=== PATIENT | female | born 1955 | race Caucasian/White ===

== ENCOUNTER 2019-08-14 23:48 | Inpatient (IN) ==
[2019-08-14] MEDS ORDERED: NITROGLYCERIN SL 0.4 MG/TAB TAB ONE (23:54)
[2019-08-15] MEDS ORDERED: ONDANSETRON INJ 2 MG/ML 2 ML VIAL IV STA (00:01)
[2019-08-15] MEDS ORDERED: fentaNYL citrate 100 MCG/2 ML VIAL IV STA (00:01)
[2019-08-15 00:03] LABS: Basophils # (auto) 0.03 K/uL (0-0.2); Basophils % (auto) 0.3 %; Eosinophils # (auto) 0.05 K/uL (0-0.5); Eosinophils % (auto) 0.5 %; Hematocrit (blood only) 49.6 % (37-47); Hemoglobin 17.2 g/dL (12.0-16.0); Immature Granulocytes # (auto) 0.03 K/uL (0.00-0.02); Immature Granulocytes % (auto) 0.3 %; Lymphocytes # (auto) 1.76 K/uL (1.2-3.4); Lymphocytes % (auto) 16.1 %; Mean Corpuscular Hemoglobin 31.9 pg (25-34); Mean Corpuscular Hgb Conc 34.7 g/dL (32-36); Mean Platelet Volume 10.6 fL (7.4-10.4); Monocytes # (auto) 0.52 K/uL (0.11-0.59); Monocytes % (auto) 4.8 %; Neutrophils # (auto) 8.52 K/uL (1.4-6.5); Platelet Count 235 K/uL (130-400); RDW Coefficient of Variation 12.8 % (11.5-14.5); RDW Standard Deviation 42.5 fL (36.4-46.3); Red Blood Count 5.39 M/uL (4.2-5.4); White Blood Count 10.91 K/uL (4.8-10.8)
[2019-08-15] MEDS ORDERED: SODIUM CHLORIDE 0.9% 1000ML 250 ML IV ONE (00:05)
[2019-08-15] MEDS ORDERED: MIDAZOLAM HCL 1 MG/ML 2ML VIAL ONE (00:06)
[2019-08-15] MEDS ORDERED: NiCARDipine HCL INJ 2.5 MG/ML 10 ML AMP ONE (00:06)
[2019-08-15] MEDS ORDERED: fentaNYL citrate 100 MCG/2 ML VIAL ONE (00:06)
[2019-08-15] MEDS ORDERED: HEPARIN (PORCINE) 1000 UNIT/ML 10 ML (CATH LAB USE ONLY) ONE (00:06)
[2019-08-15] MEDS ORDERED: NITROGLYCERIN/D5W 100MCG/ML 20ML SYR ONE (00:07)
[2019-08-15 00:15] LABS: Partial Thromboplastin Time 26.6 Seconds (21.0-31.0); Prothrombin Time 10.3 Seconds (9.0-12.0)
[2019-08-15] MEDS ORDERED: HEPARIN SOD 5,000 UNIT/0.5 ML VIAL ONE (00:16)
[2019-08-15] MEDS ORDERED: TICAGRELOR 90 MG TAB PO ONE (00:16)
--- NOTE | 2019-08-15 00:20 | Cardiology Consultation ---
Date of Consultation August 15, 2019 Assessment & Plan (1) Acute OH: Presentation consistent with inferior STEMI and recommend proceeding with emergent cardiac catheterization and likely primary PCI. No apparent contraindications to procedure. Discussed risks, benefits, alternatives of procedure with patient and they are willing to proceed. Given IV heparin and ticagrelor 180 mg in the ED. Further recommendations pending findings of coronary angiography. History of Present Illness History of Present Illness 64-year-old woman here with acute chest pain and ECG concerning for acute OH. Patient seen emergently in the ED after heart alert activated upon arrival. No prior significant cardiac history. Per patient had episode of chest pain 1-2 yrs ago for which underwent a stress test which reportedly normal. Symptoms attributed to GERD. No longer on meds for reflux. Cardiac risk factors include ongoing tobacco abuse, dyslipidemia, obesity. Other medical issues include hypothyroidism, anxiety. Chest pain began day prior to presentation and has been waxing/waning since that time. Tonight around 10pm, ~ 1 hr before ambulance arrival, pain significantly worsened without relenting. Denies similar symptoms in the past. Given a total of 3 SLNTG with reduction in CP from 9/10 --> 2/10. Hypertensive to 200s on arrival. Underwent serial ECGs with ECG at 11:45 showing sinus rhythm with inferior ST elevations. Allergies Allergy/AdvReac Type Severity Reaction Status Date / Time cephalexin Allergy Unknown face Unverified 08/15/19 00:02 swelling erythromycin base Allergy Unknown nausea, Unverified 08/15/19 00:02 vomitting Sulfa (Sulfonamide Allergy Unknown face Unverified 08/15/19 00:02 Antibiotics) swelling Home Medications Home Medications Medication Instructions Recorded Confirmed Type levothyroxine 112 mcg PO DAILY 08/15/19 08/15/19 History paroxetine HCl 40 mg PO DAILY 08/15/19 08/15/19 History Patient History Medical History (Updated 08/15/19 @ 00:47 by Oneyda Love) Depression (Chronic) Dermatitis (Chronic) DJD (degenerative joint disease), cervical (Chronic) HLD (hyperlipidemia) (Chronic) Hypothyroidism (Chronic) Tobacco use disorder (Chronic) Social History Feels Safe at Home: Yes Smoking Status: Current every day smoker Review of Systems Review of Systems: All systems reviewed & are unremarkable except as noted in HPI & below Physical Exam Physical Exam: General: uncomfortable, no acute distress Eyes: Sclerae anicteric HENT: Oropharynx clear mucous membranes moist, poor dentition Lungs: Clear to auscultation bilaterally Cardiac: Regular rate and rhythm, no murmurs Abdomen: Soft, nontender, nondistended, positive bowel sounds. Neuro: Nonfocal Psych: Alert orient x3, normal affect and mood Extremities/Vascular: -- 2+ radial bilaterally -- No edema Results & Data ([facility]) Vital Signs (Past 12 Hours) Vital Signs Temp Pulse Resp BP Pulse Ox 08/14/19 23:58 95 08/14/19 23:54 98.6 F 77 20 153/97 H 95 PG Care Time/CCT Total # of Minutes Spent Total Time Spent with Patient: Total time spent is greater than 50% in coordination of care (as documented) at patient's floor/unit and/or counseling patient: Coding Level of Care Code 26340 Inpt Consult Level 5 Diagnoses Acute OH I21.9
[2019-08-15 00:24] LABS: Albumin Level 3.9 gm/dl (3.4-5.0); BUN Creatinine Ratio 12.2 (10-20); Calcium 9.3 mg/dl (8.5-10.1); Creatinine Clr Calc Pharmacy 76.4 ml/min; Est GFR (African American) 91.7; Est GFR (Non-African American) 79.1; Potassium 3.8 mmol/L (3.5-5.1)
--- NOTE | 2019-08-15 00:27 | Pre Anesthesia Assessment ---
Date of Service August 15, 2019 Pre Sedation Assessment Vital Signs Temp Pulse Resp BP Pulse Ox 08/15/19 00:20 78 18 165/103 H 96 08/14/19 23:58 95 08/14/19 23:54 98.6 F 77 20 153/97 H 95 Cardiovascular RRR, no murmur, no edema Respiratory normal respiratory effort, lungs clear to auscultation Pre-Sedation Airway Assessment Smoking Status: Current every day smoker Hx Sleep Apnea: No Hx Difficult Intubation: No Thyromental Distance: > or= 3.5 Finger Breadths Oral Cavity: + WNL Mallampati Class: III ASA: ASA4 Procedure Planning Contraindications for Sedation: none Current Medications Reviewed: Yes Notes The planned sedation has been discussed with the patient. Informed Consent was obtained. I have identified the patient, determined the appropriateness of sedation and have assessed the patient immediately prior to the procedure. All medicine(s) and interventions are by my order.
[2019-08-15] MEDS ORDERED: ATROPINE SULFATE 0.1 MG/ML 10ML SYR IV ONE (00:45)
[2019-08-15 00:52] LABS: Bilirubin,Total 1.1 mg/dl (0.2-1); Creatine Kinase MB 15.4 ng/ml (0.5-3.6); Globulin 4.1 gm/dl (2.5-4.0); Thyroid Stimulating Hormone 0.167 uIu/ml (0.300-4.500); Troponin I 1.4 ng/ml (0-0.045)
[2019-08-15 01:07] LABS: T4 Free Thyroxine 1.26 ng/dl (0.8-1.6)
--- NOTE | 2019-08-15 01:10 | Emergency Department Note ---
Entered by Oneyda Love acting as a scribe for History of Present Illness General Chief complaint: Chest Pain Stated complaint: CHEST PAIN History of Present Illness Provider complaint: chest pain Onset (ago): day(s) 1 Location: chest Radiation: back, extremity (left upper) and other (jaw) Pain Consistency: + other (episode) Maximum Pain Intensity: 4 Current Pain Intensity: 5 Quality: + other (pressure) Relieved By: + medication (aspirin and nitroglycerin) Associated symptoms: + diaphoresis and + other (pain intermittent for 1 day, but became constant 1.5 hours ago, difficulty breathing, nauseas) Treatments prior to arrival: NSAID (324 mg aspirin) and other (2 doses of nitroglycerin ) The patient is a 64 year old female who presents to the ED with complaints of an episode of chest pain that started 1 day ago. The patient states that her pain started off as intermittent, but became constant 1.5 hours ago. The patient describes the pain as pressure and radiating into her jaw, back and left arm. Per EMS, the patient was given 2 doses of nitroglycerin and 324 mg of aspirin en route. The patient states that this brought her pain down from an 8/10 to a 5/10. The patient states that when the pain became constant 1.5 hours ago, she was diaphoretic, nauseas and was having difficulty breathing. Per EMS, the patient had a stress test last year and her blood pressure is usually in the 110s. The patient notes that she smoked approximately 1 pack of cigarettes every day. Home Medications Home Medications Medication Instructions Recorded Confirmed Type levothyroxine 112 mcg PO DAILY 08/15/19 08/15/19 History paroxetine HCl 40 mg PO DAILY 08/15/19 08/15/19 History Allergies Allergy/AdvReac Type Severity Reaction Status Date / Time cephalexin Allergy Unknown face Unverified 08/15/19 00:02 swelling erythromycin base Allergy Unknown nausea, Unverified 08/15/19 00:02 vomitting Sulfa (Sulfonamide Allergy Unknown face Unverified 08/15/19 00:02 Antibiotics) swelling Past Med/Surg History Medical History Depression (Chronic) Dermatitis (Chronic) DJD (degenerative joint disease), cervical (Chronic) HLD (hyperlipidemia) (Chronic) Hypothyroidism (Chronic) Tobacco use disorder (Chronic) Social History Feels Safe at Home: Yes Smoking Status: Current every day smoker Review of Systems See HPI for pertinent positives & negatives. and A total of 10 systems reviewed and were otherwise negative Physical Exam Vital Signs Vital Signs - 24 hr 08/14/19 23:54 08/14/19 23:58 08/15/19 00:20 Temperature 37 C Temperature Source Oral Pulse Rate 77 78 Respiratory Rate 20 18 Respiratory Effort / Characteristics Non-Labored Spontaneous Respiratory Depth Normal Blood Pressure 153/97 H 165/103 H Blood Pressure Mean 115 Pulse Oximetry 95 95 96 Oxygen Delivery Method Room Air Room Air Room Air Sepsis Recent Fever Within 48 Hours No Sepsis Action Taken by Nursing No Action Required Constitutional: Vital signs reviewed. Eyes: Pupils are equal round reactive to light. Conjunctiva are noninjected. ENT: Pharynx is clear without erythema or exudate. Mucous membranes are moist. Neck supple without meningeal signs. Respiratory: Clear to auscultation bilaterally. Breath sounds are equal bilatera lly. Cardiovascular: Regular rate and rhythm. No rubs or gallops. GI: Soft, nondistended and nontender. Bowel sounds are present. Musculoskeletal: No peripheral edema. No lower extremity tenderness. Integumentary: No cyanosis. Neurological: The patient is awake and alert. No focal deficits. Psychiatric: Normal affect. Course Course 2339: Medical command call was taken. I called a heart alert. Patient was reported to be hypertensive and has chest pain so I recommended sublingual Nitroglycerin. Aspirin has already been given to the patient by EMS. 2348: Past medical records reviewed. The patient was evaluated in room B01. A complete history and physical exam was performed. 2356: The patient rates her pain as a 4/10 after another dose of nitroglycerin. I discussed catheterization with the patient briefly. We are waiting for Dr. Smith- Cardiology. 2327: I also discussed the patient's case with Dr. Ivana Do, Hospitalist. He will evaluate the patient for further management after the cardiac catheterization. 0005: I reassessed the patient. Her hemoglobin and blood pressure are both elevated. She is getting fentanyl now. Dr. Smith is at bedside. 0014: The patient rates her chest pain as 2/10. She is waiting to go the cemetery laborer with Dr. Smith- Cardiology. She is getting a heparin bolus and brilinta. 0021: The patient is being taken to the cemetery laborer now. Consultations Consultation #1: I also discussed the patient's case with Dr. Ivana Do, Hospitalist. He will evaluate the patient for further management after the cardiac catheterization. Time: 23:27 Administered Medications Discontinued Medications Atropine Sulfate (Atropine Sulfate) Confirm Administered Dose 1 mg IV .STK-MED ONE Stop: 08/15/19 00:46 Last Admin: 08/15/19 01:03 Dose: Not Given Documented by: [id number] Fentanyl Citrate (Fentanyl Citrate) 50 mcg IV NOW STA Stop: 08/15/19 00:02 Last Admin: 08/15/19 00:06 Dose: 50 mcg Documented by: [id number] Fentanyl Citrate (Fentanyl Citrate) Confirm Administered Dose 100 mcg .ROUTE .STK-MED ONE Stop: 08/15/19 00:07 Last Admin: 08/15/19 01:04 Dose: 50 mcg Documented by: [id number] Heparin Sodium (Porcine) (Heparin Iv Bolus (Cor[employer]egal Use Only)) Confirm Administered Dose 10,000 units .ROUTE .STK-MED ONE Stop: 08/15/19 00:07 Last Admin: 08/15/19 01:04 Dose: 5,000 units Documented by: [id number] Heparin Sodium (Porcine) (Heparin Sodium (Porcine)) Confirm Administered Dose 5,000 units .ROUTE .STK-MED ONE Stop: 08/15/19 00:17 Last Admin: 08/15/19 00:18 Dose: 5,000 units Documented by: [id number] Cosigned by: [id number] Heparin Sodium/Sodium Chloride (Heparin/Nss 1000 Unit/500ml Flush Bag) Confirm Administered Dose 3,000 units IV .STK-MED ONE Stop: 08/15/19 00:07 Last Admin: 08/15/19 00:58 Dose: 3,000 units Documented by: [id number] Sodium Chloride (Nss 1000ml) 250 mls @ 999 mls/hr IV .Q16M ONE Stop: 08/15/19 00:20 Last Admin: 08/15/19 00:06 Dose: 999 mls/hr Documented by: [id number] Midazolam HCl (Versed) Confirm Administered Dose 2 mg .ROUTE .STK-MED ONE Stop: 02/27/20 00:07 Last Admin: 08/15/19 01:03 Dose: 2 mg Documented by: [id number] Nicardipine HCl (Cardene) Confirm Administered Dose 25 mg .ROUTE .STK-MED ONE Stop: 08/15/19 00:07 Last Admin: 08/15/19 00:58 Dose: 25 mg Documented by: [id number] Nitroglycerin (Nitrostat) Confirm Administered Dose 0.4 mg .ROUTE .STK-MED ONE Stop: 08/14/19 23:55 Last Admin: 08/14/19 23:55 Dose: 0.4 mg Documented by: [id number] Nitroglycerin/Dextrose (Nitroglycerin/D5w 100 Mcg/Ml 20ml Syringe) Confirm Administered Dose 2,000 mcg .ROUTE .STK-MED ONE Stop: 08/15/19 00:08 Last Admin: 08/15/19 00:58 Dose: 2,000 mcg Documented by: [id number] Ondansetron HCl (Zofran) 4 mg IV NOW STA Stop: 08/15/19 00:02 Last Admin: 08/15/19 00:06 Dose: 4 mg Documented by: [id number] Ticagrelor (Brilinta) Confirm Administered Dose 180 mg PO .STK-MED ONE Stop: 08/15/19 00:17 Last Admin: 08/15/19 00:18 Dose: 180 mg Documented by: [id number] Critical Care Time Critical Care Time: Yes Total Critical Care Time: 35 I have personally spent 35 minutes of critical care time in the direct management of this patient. This includes bedside care, interpretation of diagnostic studies, and testing, discussion with consultants, patient, and family members, and other required patient management activities. This 35 minutes is in excess of all separately billable procedures. Medical Decision Making Differential Diagnosis Differentials include STEMI, right ventricular infarct, aortic dissection, pneumothorax, esophageal spasm. Medical Records Attestation: I reviewed the patient's medical records. I did perform a limited focused review of portions of the patient's old chart on the electronic medical record. The patient has had no recent pertinent visits to this hospital. Home Medications Current Medication List: was personally reviewed by me Laboratory Data Attestation: I reviewed the patient's lab results. Result diagrams: 08/14/19 23:50 08/14/19 23:50 Lab Results 08/14/19 08/14/19 08/14/19 Range/Units 23:50 23:50 23:50 WBC 10.91 H (4.8-10.8) K/uL RBC 5.39 (4.2-5.4) M/uL Hgb 17.2 H (12.0-16.0) g/dL Hct 49.6 H (37-47) % MCV 92.0 (80-100) fL MCH 31.9 (25-34) pg MCHC 34.7 (32-36) g/dL RDW Std Deviation 42.5 (36.4-46.3) fL RDW Coeff of Jessica 12.8 (11.5-14.5) % Plt Count 235 (130-400) K/uL MPV 10.6 H (7.4-10.4) fL Immature Gran % (Auto) 0.3 % Neut % (Auto) 78.0 % Lymph % (Auto) 16.1 % [place] % (Auto) 4.8 % Eos % (Auto) 0.5 % Baso % (Auto) 0.3 % Immature Gran # (Auto) 0.03 H (0.00-0.02) K/uL Neut # (Auto) 8.52 H (1.4-6.5) K/uL Lymph # (Auto) 1.76 (1.2-3.4) K/uL [place] # (Auto) 0.52 (0.11-0.59) K/uL Eos # (Auto) 0.05 (0-0.5) K/uL Baso # (Auto) 0.03 (0-0.2) K/uL PT 10.3 (9.0-12.0) Seconds INR 1.0 (0.9-1.1) APTT 26.6 (21.0-31.0) Seconds PTT Ratio 1.0 Sodium 136 (136-145) mmol/L Potassium 3.8 (3.5-5.1) mmol/L Chloride 104 (98-107) mmol/L Carbon Dioxide 24 (21-32) mmol/L Anion Gap 8.0 (3-11) BUN 10 (7-18) mg/dl Creatinine 0.79 (0.6-1.2) mg/dl POC Creatinine (0.6-1.3) mg/dl Est Cr Clr Drug Dosing 76.4 ml/min Est GFR ( Amer) 91.7 Est GFR (Non-Af Amer) 79.1 BUN/Creatinine Ratio 12.2 (10-20) Glucose 156 H (70-99) mg/dl Calcium 9.3 (8.5-10.1) mg/dl Magnesium 2.0 (1.8-2.4) mg/dl Total Bilirubin 1.1 H (0.2-1) mg/dl AST 29 (15-37) U/L ALT 28 (12-78) U/L Alkaline Phosphatase 103 (45-117) U/L Total Creatine Kinase 186 (26-192) U/L CK-MB (CK-2) 15.4 H (0.5-3.6) ng/ml CK/CKMB % Calc 8.3 H (0-3.0) POC Troponin I (0-0.045) ng/ml Troponin I 1.400 H* (0-0.045) ng/ml Total Protein 8.0 (6.4-8.2) gm/dl Albumin 3.9 (3.4-5.0) gm/dl Globulin 4.1 H (2.5-4.0) gm/dl Albumin/Globulin Ratio 1.0 (0.9-2) TSH 0.167 L (0.300-4.500) uIu/ml 08/15/19 08/15/19 Range/Units 00:03 00:15 WBC (4.8-10.8) K/uL RBC (4.2-5.4) M/uL Hgb (12.0-16.0) g/dL Hct (37-47) % MCV (80-100) fL MCH (25-34) pg MCHC (32-36) g/dL RDW Std Deviation (36.4-46.3) fL RDW Coeff of Jessica (11.5-14.5) % Plt Count (130-400) K/uL MPV (7.4-10.4) fL Immature Gran % (Auto) % Neut % (Auto) % Lymph % (Auto) % [place] % (Auto) % Eos % (Auto) % Baso % (Auto) % Immature Gran # (Auto) (0.00-0.02) K/uL Neut # (Auto) (1.4-6.5) K/uL Lymph # (Auto) (1.2-3.4) K/uL [place] # (Auto) (0.11-0.59) K/uL Eos # (Auto) (0-0.5) K/uL Baso # (Auto) (0-0.2) K/uL PT (9.0-12.0) Seconds INR (0.9-1.1) APTT (21.0-31.0) Seconds PTT Ratio Sodium (136-145) mmol/L Potassium (3.5-5.1) mmol/L Chloride (98-107) mmol/L Carbon Dioxide (21-32) mmol/L Anion Gap (3-11) BUN (7-18) mg/dl Creatinine (0.6-1.2) mg/dl POC Creatinine 0.7 (0.6-1.3) mg/dl Est Cr Clr Drug Dosing ml/min Est GFR ( Amer) Est GFR (Non-Af Amer) BUN/Creatinine Ratio (10-20) Glucose (70-99) mg/dl Calcium (8.5-10.1) mg/dl Magnesium (1.8-2.4) mg/dl Total Bilirubin (0.2-1) mg/dl AST (15-37) U/L ALT (12-78) U/L Alkaline Phosphatase (45-117) U/L Total Creatine Kinase (26-192) U/L CK-MB (CK-2) (0.5-3.6) ng/ml CK/CKMB % Calc (0-3.0) POC Troponin I 1.04 H (0-0.045) ng/ml Troponin I (0-0.045) ng/ml Total Protein (6.4-8.2) gm/dl Albumin (3.4-5.0) gm/dl Globulin (2.5-4.0) gm/dl Albumin/Globulin Ratio (0.9-2) TSH (0.300-4.500) uIu/ml Imaging Data Attestation: I personally reviewed and interpreted this imaging study as follow s: My Impression: No acute cardiopulmonary process, no infiltrate, no effusion. ECG Data Attestation: I personally reviewed and interpreted this ECG as follows: Indication: + chest pain Rate (beats per minute): 78 Rhythm: + sinus rhythm ECG Intervals/blocks: + Normal QRS ECG ST segments: + ST depression (high lateral and septal leads) and + ST elevation (Inferior leads) ECG Findings: no PVCs Additional Comments: PREHOSPITAL EKG: Rate: 74 Rhythm: Sinus rhythm Findings: ST elevation in inferior leads, ST depression in lateral and anterior septal leads, no PVCs. RIGHT SIDED PREHOSPITAL EKG: Rate: 79 Rhythm: Sinus rhythm Findings: ST elevation in inferior leads, ST depression septally, no evidence of right ventricular infarct, no PVCs. Blood Pressure Blood Pressure Findings: Elevated blood pressure Blood Pressure Disposition: further management by hospitalist [facility] Narrative I did provide prehospital medical command for the patient. I did review the 2 EKGs as noted above. She does have a inferior STEMI with reciprocal changes. The right-sided EKG showed no evidence of right ventricular infarct. I did recommend the turn supervisor treat her with nitroglycerin sublingually and the patient was already given 325 of aspirin. The patient's pressure prehospital was over 200 systolic. I did call a heart alert. I did evaluate the patient immediately upon arrival as noted above. 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 I did order and personally review the patient's 12-lead EKG as described above. The patient has an inferior wall ST elevation [place] with reciprocal changes. The patient was given additional nitroglycerin in the ED. She did receive 2 prior to arrival and her chest pain went down from an 8 to a 4. I also treated her with fentanyl and Zofran IV. Her chest pain came down to a 2. I did order and personally reviewed the images of the patient's chest x-ray as described above. Per my interpretation there is no acute cardiopulmonary process. I did order and review the patient's blood work as noted in the electronic medical record. Her hemoglobin is slightly elevated. I noticed on previous visit she also had an elevated hemoglobin. Her troponin is 1.4. Dr. Smith of cardiology did evaluate the patient in the ED. She was started on Brilinta and IV heparin here. She was taken emergently to the [facility]. I did [facility] the [facility]. Impression & Plan ST elevation (STEMI) myocardial infarction Discharge Plan Visit Data *Final* Discharge Date/Time: 08/15/19 00:20 Chief Complaint: Chest Pain Stated Complaint: CHEST PAIN ED Provider: Travis Watkins Discharge Problem: ST elevation (STEMI) myocardial infarction Patient Disposition: Still a Patient Discharge Instructions Interventions: ED Discharge Assessment Last Done: 08/15/19 00:20 Discharge Problem: ST elevation (STEMI) myocardial infarction Qualifiers: Involved coronary artery: unspecified coronary artery Qualified Code(s): I21.3 - ST elevation (STEMI) myocardial infarction of unspecified site The scribe's documentation has been prepared under my direction and personally reviewed by me in its entirety. I confirm that the note above accurately reflects all work, treatment, procedures, and medical decision making performed by me.
[2019-08-15] MEDS ORDERED: ONDANSETRON INJ 2 MG/ML 2 ML VIAL IV PRN (01:12)
[2019-08-15] MEDS ORDERED: NITROGLYCERIN SL 0.4 MG/TAB TAB SL PRN (01:12)
[2019-08-15] MEDS ORDERED: SODIUM CHLORIDE 0.9% 1000ML 1,000 ML IV SCH (01:15)
[2019-08-15] MEDS ORDERED: ACETAMINOPHEN 325 MG TAB PO PRN (01:17)
--- NOTE | 2019-08-15 01:18 | History & Physical Report ---
Date of Service August 15, 2019 Assessment & Plan (1) ST elevation (STEMI) myocardial infarction: sp PCI of 100% occluded mid right PDA Patient currently comfortable. 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 Check hemoglobin A1c Nicotine patch PRN DVT prophylaxis per Lovenox subcu Full code Text document was generated using [employer] voice recognition software. It may contain grammatical or spelling errors. Kindly contact undersigned for clarification of any documentation item in question. History of Present Illness Chief Complaint: Chest pain Primary Care Provider: Charlie Sanchez MD History obtained from patient and records. Medical history significant for hypothyroidism, mood disorder, ongoing tobacco abuse. Recent confinement November 2017 for chest pain. No inducible ischemia on stress echo. 2 nights ago patient was watching television when she experienced achy substernal discomfort going to her jaw and arm associated with shortness of breath and diaphoreses, intermittent symptoms. Episode more prolonged and intense last night. Some relief with nitro administered by EMS. Heart alert called upon arrival at the ER. Patient underwent diagnostic cardiac catheterization and PCI. Patient currently comfortable in the ICU. 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 Allergies Allergy/AdvReac Type Severity Reaction Status Date / Time cephalexin Allergy Unknown face Unverified 08/15/19 00:02 swelling erythromycin base Allergy Unknown nausea, Unverified 08/15/19 00:02 vomitting Sulfa (Sulfonamide Allergy Unknown face Unverified 08/15/19 00:02 Antibiotics) swelling Home Medications Home Medications Medication Instructions Recorded Confirmed Type levothyroxine 112 mcg PO DAILY 08/15/19 08/15/19 History paroxetine HCl 40 mg PO DAILY 08/15/19 08/15/19 History Past Med/Surg History Medical History Depression (Chronic) Dermatitis (Chronic) DJD (degenerative joint disease), cervical (Chronic) HLD (hyperlipidemia) (Chronic) Hypothyroidism (Chronic) Tobacco use disorder (Chronic) Social History Preferred Language: Dutch Beliefs That Will Affect Care: None Current Living Situation: Alone Feels Safe at Home: Yes Safety Concerns: Feels Safe At This Time Smoking Status: Current every day smoker Hx Alcohol Use: No Hx Substance Use: No Review of Systems Review of Systems: As per HPI, all 10 systems reviewed, all other ROS negative Physical Exam Physical Exam: GENERAL: Comfortable, pleasant, obese, no respiratory distress SKIN: Normal color, warm HEENT: Bespectacled, [place] palpebral conjunctivae, no ptosis, moist buccal mucosa NECK : Supple, short neck, no tenderness CHEST : CTA, no tenderness HEART : RRR, systolic murmur ABDOMEN: Some distention, nontender EXTREMITIES : No LE swelling/tenderness, no other conspicuous deformities noted NEUROLOGIC : Coherent, no facial asymmetry, no other gross focality Results & Data Vital Signs (Past 12 Hours) Vital Signs Temp Pulse Resp BP Pulse Ox 08/15/19 00:20 78 18 165/103 H 96 08/14/19 23:58 95 08/14/19 23:54 37 C 77 20 153/97 H 95 Laboratory Results Laboratory Results WBC 10.91 K/uL (4.8-10.8) H 08/14/19 23:50 RBC 5.39 M/uL (4.2-5.4) 08/14/19 23:50 Hgb 17.2 g/dL (12.0-16.0) H 08/14/19 23:50 Hct 49.6 % (37-47) H 08/14/19 23:50 MCV 92.0 fL (80-100) 08/14/19 23:50 MCH 31.9 pg (25-34) 08/14/19 23:50 MCHC 34.7 g/dL (32-36) 08/14/19 23:50 RDW Std Deviation 42.5 fL (36.4-46.3) 08/14/19 23:50 RDW Coeff of Jessica 12.8 % (11.5-14.5) 08/14/19 23:50 Plt Count 235 K/uL (130-400) 08/14/19 23:50 MPV 10.6 fL (7.4-10.4) H 08/14/19 23:50 Immature Gran % (Auto) 0.3 % 08/14/19 23:50 Neut % (Auto) 78.0 % 08/14/19 23:50 Lymph % (Auto) 16.1 % 08/14/19 23:50 [place] % (Auto) 4.8 % 08/14/19 23:50 Eos % (Auto) 0.5 % 08/14/19 23:50 Baso % (Auto) 0.3 % 08/14/19 23:50 Immature Gran # (Auto) 0.03 K/uL (0.00-0.02) H 08/14/19 23:50 Neut # (Auto) 8.52 K/uL (1.4-6.5) H 08/14/19 23:50 Lymph # (Auto) 1.76 K/uL (1.2-3.4) 08/14/19 23:50 [place] # (Auto) 0.52 K/uL (0.11-0.59) 08/14/19 23:50 Eos # (Auto) 0.05 K/uL (0-0.5) 08/14/19 23:50 Baso # (Auto) 0.03 K/uL (0-0.2) 08/14/19 23:50 PT 10.3 Seconds (9.0-12.0) 08/14/19 23:50 INR 1.0 (0.9-1.1) 08/14/19 23:50 APTT 26.6 Seconds (21.0-31.0) 08/14/19 23:50 PTT Ratio 1.0 08/14/19 23:50 Sodium 136 mmol/L (136-145) 08/14/19 23:50 Potassium 3.8 mmol/L (3.5-5.1) 08/14/19 23:50 Chloride 104 mmol/L (98-107) 08/14/19 23:50 Carbon Dioxide 24 mmol/L (21-32) 08/14/19 23:50 Anion Gap 8.0 (3-11) 08/14/19 23:50 BUN 10 mg/dl (7-18) 08/14/19 23:50 Creatinine 0.79 mg/dl (0.6-1.2) 08/14/19 23:50 POC Creatinine 0.7 mg/dl (0.6-1.3) 08/15/19 00:15 Est Cr Clr Drug Dosing 76.4 ml/min 08/14/19 23:50 Est GFR ( Amer) 91.7 08/14/19 23:50 Est GFR (Non-Af Amer) 79.1 08/14/19 23:50 BUN/Creatinine Ratio 12.2 (10-20) 08/14/19 23:50 Glucose 156 mg/dl (70-99) H 08/14/19 23:50 Calcium 9.3 mg/dl (8.5-10.1) 08/14/19 23:50 Magnesium 2.0 mg/dl (1.8-2.4) 08/14/19 23:50 Total Bilirubin 1.1 mg/dl (0.2-1) H 08/14/19 23:50 AST 29 U/L (15-37) 08/14/19 23:50 ALT 28 U/L (12-78) 08/14/19 23:50 Alkaline Phosphatase 103 U/L (45-117) 08/14/19 23:50 Total Creatine Kinase 186 U/L (26-192) 08/14/19 23:50 CK-MB (CK-2) 15.4 ng/ml (0.5-3.6) H 08/14/19 23:50 CK/CKMB % Calc 8.3 (0-3.0) H 08/14/19 23:50 POC Troponin I 1.04 ng/ml (0-0.045) H 08/15/19 00:03 Troponin I 1.400 ng/ml (0-0.045) H* 08/14/19 23:50 Total Protein 8.0 gm/dl (6.4-8.2) 08/14/19 23:50 Albumin 3.9 gm/dl (3.4-5.0) 08/14/19 23:50 Globulin 4.1 gm/dl (2.5-4.0) H 08/14/19 23:50 Albumin/Globulin Ratio 1.0 (0.9-2) 08/14/19 23:50 TSH 0.167 uIu/ml (0.300-4.500) L 08/14/19 23:50 Free T4 1.26 ng/dl (0.8-1.6) 02/26/20 23:50 Diagnostic Findings Chest x-ray as per my interpretation: No infiltrate, no congestion EKG as per my interpretation : Rate 55, sinus bradycardia, normal axis, ST elevation inferior leads (1) ST elevation (STEMI) myocardial infarction Involved coronary artery: unspecified coronary artery Qualified Code(s): I21.3 - ST elevation (STEMI) myocardial infarction of unspecified site
[2019-08-15] MEDS ORDERED: ICU PROTOCOL FOR HYPERGLYCEMIA PRN (01:19)
--- NOTE | 2019-08-15 01:33 | Cardiac Catheterization ---
[facility] Data: Decal Maker Cardiac Status Clinical evaluation leading to the procedure CAD Presenation: STEMI Anginal Classification: CCS IV Heart Failure: No Cardiogenic Shock within 24 Hours: No Cardiac Arrest within 24 Hours: No Imaging Studies Past 6 Months: No Stress Studies Past 6 Months: No Diagnostic Physicians Name: Twin Smith MD Status: Emergency Closure Device Percutaneous Entry Location: Radial Closure Device: Radial Band Recommendations: PCI without planned CABG PCI Indication: Immediate PCI for STEMI First Noted: Subsequent EKG Lesion Segment Name: PDA Culprit Artery: Yes Stenosis Prior to Rx (%): 100 Chronic Total Occlusion: No IVUS: No FFR: No Pre-Procedure DIANE Flow: 0 Previously Treated Lesion: No Lesion Complexity: Non-High/Non-C Lesion Length (mm): 10 Thrombus Present: Yes Bifurcation Lesion: No Guidewire Across Lesion: Stenosis Post-Procedure (%): 0 Post-Procedure DIANE Flow: 3 Devices(s) Deployed: Yes Yes Intraprocedure Events Significant Disection: No Perforation: No Cardiac Cath Procedure Full Procedure Date August 15, 2019 Pre-Procedure Diagnosis Pre-Procedure Diagnosis: STEMI AUC Score AUC Score: 9 Post-Procedure Diagnosis Post-Procedure Diagnosis: Severe CAD, Successful PCI and Normal Intracardiac Pressures Procedure(s) Performed Procedure(s) Performed: Coronary Angiography, Left Heart Cath and Drug Eluting Stent Election Judge Twin Smith MD Teasel Setter(s) Ole Aguirre Estimated Blood Loss Estimated Blood Loss: 10 Medication(s) Medication(s): Fentanyl, Heparin, Lidocaine 1%, Nicardipine, Nitroglycerin and Versed Medication(s): Ticagrelor Summary of Findings Indication: STEMI/Heart Alert Access: 6 Fr slender right radial artery Catheters: Ikari 3.5 guide, pigtail Findings: LM -long, medium caliber without significant disease LAD -medium caliber vessel, diffuse 30 to 40% proximal disease mid to distal vessel is tortuous with luminal irregularities and wraps around apex. Gives off small diagonals without significant Circumflex -small caliber vessel. Gives off medium caliber high OM1 without significant disease. Small mid circumflex with 40 to 50% disease RCA -dominant, large caliber vessel, 30 to 40% ostial, mild proximal disease, 30 to 40% mid segment disease, right PDA 1% acute occlusion. Distal vessel initially fills via [id number] collaterals. LVEDP -15 -- PCI -- Antithrombotic therapy: Heparin, ticagrelor Procedure: RCA cannulated with Ikari left 3.5 guide Lead Web Application Developer 50 wire passed across lesion into distal vessel Mid PDA lesion predilated with 2.5 compliant balloon Dilated lesion stented with 2.5 x 18 mm [place] drug-eluting Stent post-dilated with 2.75 noncompliant balloon IC vasodilators administered for spasm Post procedure DIANE 3 flow, stent well expanded with minimal residual stenosis and no apparent cardiac complications. Arterial Closure: TR band Summary: 1. Inferior STEMI/acutely 100% occluded mid right PDA 2. Mild non-culprit vessel coronary artery disease -Diffuse 30 to 40% proximal LAD 40 to 50% small mid circumflex 3. Normal intracardiac filling pressure 4. Successful PCI of right PDA with single drug-eluting stent (2.5 x 18 mm Justin; postdilated with 2.75 NC) Recommendations: Admit to ICU for continued monitoring Loaded with ticagrelor 180 mg in the emergency department Continue dual-antiplatelet therapy for at least 1 year. Trend troponins until peak, Check Echo Uptitrate beta-cristopher/CATHERINE as BP allows High-dose statin Consult cardiac Rehab Hemodynamics Rest Ao:: 207/78/129 Final Ao: 138/64/92 LV: 144/15 Recommendations Recommendations: PCI without planned CABG Specimens Specimens: None Radiation Exposure (mGy) 2578 Contrast (mls) 160 Fluids (cc crystalloids) Fluids (cc crystalloids): 75 Drains Drains: None Anesthesia Moderate Procedural Complication(s) None Disposition ICU I attest to the content of the Intraoperative Record and any orders documented therein. Any exceptions are noted below. [facility] Card Cath Procedure Codes Cardiac Catheterization Procedure 1: Cardiovascular Cath Procedures: 16339 Coronaries and LHC (+/-LV) Moderate Sedation Procedure 1: Sedation/Anesthesia: 59331 Mod Sedation by the same physician;Init15 Min Child Age 5 & Up Procedure 2: Sedation/Anesthesia: 03192 Mod Sedation by the same physician; Ea [id number] Minutes Stenting Procedure 1: Cardiovascular Stent Procedures: 14794 Perc transluminal revascularization of acute sub/total occl, aMI PG Care Time/CCT Total # of Minutes Spent Total Time Spent with Patient: Total time spent is greater than 50% in coordination of care (as documented) at patient's floor/unit and/or counseling patient:
[2019-08-15] MEDS ORDERED: MoRPHine SULFATE 2 MG/ML CARP ONE (02:39)
[2019-08-15] MEDS ORDERED: MoRPHine SULFATE 2 MG/ML CARP IV STA (03:54)
[2019-08-15] MEDS: lisinopriL 5 MG TAB PO SCH ×3 (04:51→19:51)
[2019-08-15 05:56] LABS: Appearance Urine Clear (Clear); Bilirubin Urine Negative (Negative); Blood Urine Trace (Negative); Color Urine Yellow; Glucose Urine UA Negative (Negative); Ketones Urine 1+ (Negative); Leukocyte Esterase Urine Negative (Negative); Nitrite Urine Negative (Negative); Protein Urine Negative (Negative); Urobilinogen Urine Negative (Negative); pH Urine 6.5 (4.5-7.5)
[2019-08-15 06:18] LABS: Epithelial Cell Urine >30 /lpf (0-5)
[2019-08-15 06:19] LABS: Bacteria Urine 1+ (Negative); RBC Urine 0-4 /hpf (0-4); WBC Urine 0-5 /hpf (0-5)
--- NOTE | 2019-08-15 06:41 | XRay Report ---
XR chest 1V portable CLINICAL HISTORY: Atypical chest pain COMPARISON STUDY: 11/09/2017 FINDINGS: The cardiac and mediastinal contours are normal. There is no evidence of focal pulmonary co nsolidation. There is no evidence of failure. No pleural effusions are visualized.[ IMPRESSION: No active disease in the chest. ACT 112: Negative or not required by law. Electronically signed by: Aleksander Beltran M.D. 08/15/2019 6:40 AM
--- NOTE | 2019-08-15 07:03 | Critical Care Consultation ---
Date of Consultation August 15, 2019 Assessment & Plan (1) Admitted to intensive care unit: Reason Critically Ill: 64-year-old female with acute inferior STEMI status post PTCA with DAYSI x1 to the TIME STUDY STATISTICIAN requiring close hemodynamic monitoring status post coronary intervention. NEURO - * CAM ICU: NEGATIVE * Pain: Morphine PRN CARDIAC/VASCULAR - * Acute inferior STEMI: * s/p PTCA w/ DAYSI x1 to the culprit RIGHT PDA. * Trend troponin. * AM echo. * ASCVD Rx per typical. * EKG: Sinus Mundo @ 53bpm. QT elevations inferiorly. QTc 480ms. * Monitor on telemetry. RESPIRATORY - * Educated on smoking cessation. GI/NUTRITION - * AHA diet RENAL/LYTES - * No significant electrolyte derangements. - * No concerns at this time. ENDO - * No h/o DM * BSGs per unit protocol. ISS --> gtt per unit policy. * Hypothyroidism: * Continue home Levothyroxine dosing. HEME - * Stable H&H ID - * No concerns of infection at this time. LINES/IV ACCESS - * PIVs x2 DVT PROPHYLAXIS - * Lovenox * SCDs I have personally spent 35 minutes of critical care time in the direct management of this patient. This is a life/limb threatening event. This includes time spent evaluating patient, direct bedside care, chart review, placing orders, interpretation of diagnostic studies, discussion with consultants, patient, and family members, as well as other required patient management activities. This time is exclusive of all separately billable procedures, and teaching time and separate from and in addition to any other critical care service time. Thank you for allowing us to participate in the care of this patient. Please refer to my attending physician's documentation for any further recommendations. (2) S/P percutaneous transluminal coronary angioplasty: (3) S/P drug eluting coronary stent placement: (4) ST elevation (STEMI) myocardial infarction: (5) Acute AL: (6) HLD (hyperlipidemia): (7) Tobacco use disorder: (8) Hypothyroidism: Supervising Physician Co-Signing Physician Notes I have personally evaluated and examined this patient. I agree with assessment and plan of Deshaun Newton PA-C. Discussed with Kalpesh Smith of cardiology stable for downgrade to telemetry status, telemetry unit is full will likely remain in ICU. History of Present Illness Attending Physician: Rudy Figueroa MD History of Present Illness Patient is a 64-year-old female with a significant past medical history of hyperlipidemia, degenerative joint disease, hypothyroidism, and tobacco abuse who presented to the emergency department with stuttering chest pain for approximately 24 hours. Her chest pain increased overnight which brought her to the emergency department. Heart alert was called and the patient was taken to the [facility] emergently. She underwent PTCA with DAYSI x1 to the PDA. She was loaded with Brilinta in the emergency department. Uneventful procedure noted. On evaluation in the ICU, the patient is awake, alert, and oriented. She reports that she is having LEFT-sided chest pain with radiation to her jaw rating her discomfort a 2/10. She reports that this is similar to the pain which brought her in, however is much less in intensity. She denies any current headaches, dizziness, lightheadedness, palpitations, pleuritic pain, nausea, vomiting, or abdominal pain. Allergies Allergy/AdvReac Type Severity Reaction Status Date / Time cephalexin Allergy Unknown face Unverified 08/15/19 00:02 swelling erythromycin base Allergy Unknown nausea, Unverified 08/15/19 00:02 vomitting Sulfa (Sulfonamide Allergy Unknown face Unverified 08/15/19 00:02 Antibiotics) swelling Home Medications Home Medications Medication Instructions Recorded Confirmed Type levothyroxine 112 mcg PO DAILY 08/15/19 08/15/19 History paroxetine HCl 40 mg PO DAILY 08/15/19 08/15/19 History Patient History Medical History Depression (Chronic) Dermatitis (Chronic) DJD (degenerative joint disease), cervical (Chronic) HLD (hyperlipidemia) (Chronic) Hypothyroidism (Chronic) Tobacco use disorder (Chronic) Social History Preferred Language: Citizen Of [place] Communication Ability: Effective Beliefs That Will Affect Care: None Current Living Situation: Alone Feels Safe at Home: Yes Smoking Status: Current every day smoker Hx Alcohol Use: No Hx Substance Use: No Review of Systems Review of Systems: A complete 10 point review of systems was reviewed with the patient with pertinent positives and negatives as per history of present illness. All else were negative. Physical Exam Physical Exam: VITAL SIGNS - Vital signs and nursing notes were reviewed. GENERAL - 64-year-old female appearing her stated age who is in no acute distress. Communicates well with provider and answers questions appropriately. SKIN - Without rashes. HEAD - NC/AT. EYES - PERRL with EOMI bilaterally. Sclera anicteric. EARS - No deformities of external structures noted on gross examination bilaterally. NOSE - Midline and without cyanosis. No epistaxis or purulent drainage noted. MOUTH/OROPHARYNX - Without perioral cyanosis. Buccal mucosa pink and moist and without leukoplakia. NECK - Neck with FROM. Supple to palpation. No nuchal rigidity. LUNGS - Chest wall symmetric without accessory muscle use, intercostals retractions, or central cyanosis. Normal vesicular breath sounds CTA B/L. No wheezes, rales, or rhonchi appreciated. CARDIAC - RRR with S1/S2. No murmur, rubs, or gallops appreciated. ABDOMEN - Abdominal contour obese without pulsations or visible masses. BS normoactive all four quadrants. No tenderness, palpable masses, hepatosplenomegaly, or ascites noted. EXTREMITIES - No clubbing or peripheral cyanosis. No pretibial edema present. +3/5 radial and dorsalis pedis pulses palpated throughout. +5/5 strength noted in UE/LE bilaterally. NEUROLOGIC - Cranial nerves II through XII grossly intact. Sensory intact to light touch throughout. PSYCH - A&Ox3 and cooperates fully with examiner. Pt is very pleasant and interacts well with examiner. Results & Data ([facility]) Vital Signs (Past 12 Hours) Vital Signs Temp Pulse Pulse Resp BP BP Pulse Ox 08/15/19 05:10 63 169/88 H 95 08/15/19 04:55 64 156/86 H 93 08/15/19 04:40 58 L 135/78 96 08/15/19 04:25 72 150/69 H 95 08/15/19 04:10 62 140/81 94 08/15/19 03:55 59 L 176/85 H 94 08/15/19 03:40 56 L 171/86 H 93 08/15/19 03:25 58 L 176/82 H 93 08/15/19 03:10 76 163/86 H 95 08/15/19 02:55 62 179/92 H 91 08/15/19 02:40 63 158/83 H 94 08/15/19 02:25 64 162/84 H 96 08/15/19 02:10 67 173/86 H 94 08/15/19 01:55 54 L 148/78 H 93 08/15/19 01:45 57 L 08/15/19 01:40 65 99/80 L 94 08/15/19 01:25 36.5 C 61 16 124/70 96 08/15/19 00:20 78 18 165/103 H 96 08/14/19 23:58 95 08/14/19 23:54 37 C 77 20 153/97 H 95 Coding Level of Care Code Critical Care 1st 30-74 mins Diagnoses Admitted to intensive care unit Z78.9 S/P percutaneous transluminal coronary angioplasty Z98.61 S/P drug eluting coronary stent placement Z95.5 ST elevation (STEMI) myocardial infarction I21.3 Involved coronary artery: unspecified coronary artery Acute AL I21.9 HLD (hyperlipidemia) E78.5 Tobacco use disorder F17.200 Hypothyroidism E03.9 Time Spent (min) 35 (1) ST elevation (STEMI) myocardial infarction Involved coronary artery: unspecified coronary artery Qualified Code(s): I21.3 - ST elevation (STEMI) myocardial infarction of unspecified site
[2019-08-15 07:23] LABS: Basophils # (auto) 0.02 K/uL (0-0.2); Basophils % (auto) 0.2 %; Eosinophils # (auto) 0.06 K/uL (0-0.5); Eosinophils % (auto) 0.5 %; Hemoglobin 16.1 g/dL (12.0-16.0); Immature Granulocytes # (auto) 0.03 K/uL (0.00-0.02); Immature Granulocytes % (auto) 0.3 %; Lymphocytes # (auto) 2.43 K/uL (1.2-3.4); Lymphocytes % (auto) 22.3 %; Mean Corpuscular Hemoglobin 31.4 pg (25-34); Mean Corpuscular Hgb Conc 33.5 g/dL (32-36); Mean Corpuscular Volume 93.6 fL (80-100); Mean Platelet Volume 10.4 fL (7.4-10.4); Monocytes # (auto) 0.51 K/uL (0.11-0.59); Monocytes % (auto) 4.7 %; Neutrophils # (auto) 7.86 K/uL (1.4-6.5); Platelet Count 222 K/uL (130-400); RDW Coefficient of Variation 12.7 % (11.5-14.5); RDW Standard Deviation 43.8 fL (36.4-46.3); Red Blood Count 5.13 M/uL (4.2-5.4); White Blood Count 10.91 K/uL (4.8-10.8)
[2019-08-15] MEDS: ASPIRIN 81 MG ECTAB PO SCH (07:50)
[2019-08-15] MEDS: ATORVASTATIN 40 MG TAB PO SCH (07:50)
[2019-08-15] MEDS: METOPROLOL TARTRATE 25 MG TAB PO SCH ×2 (07:51→19:50)
[2019-08-15] MEDS: ENOXAPARIN INJ 40 MG/0.4 ML SYR SQ SCH (07:51)
[2019-08-15 07:58] LABS: BUN Creatinine Ratio 11.2 (10-20); Calcium 8.6 mg/dl (8.5-10.1); Creatinine Clr Calc Pharmacy 81.1 ml/min; Est GFR (African American) 102.6; Est GFR (Non-African American) 88.5; Magnesium 2.2 mg/dl (1.8-2.4); Potassium 3.7 mmol/L (3.5-5.1)
[2019-08-15 07:59] LABS: Estimated Average Glucose 140 mg/dl; Hemoglobin A1C 6.5 % (4.5-5.6)
[2019-08-15 08:11] LABS: Phosphorus 3.1 mg/dl (2.5-4.9); Thyroid Stimulating Hormone 0.265 uIu/ml (0.300-4.500); Troponin I 20.3 ng/ml (0-0.045)
[2019-08-15 08:16] LABS: T3 Total 0.89 ng/ml (0.60-1.81)
[2019-08-15 08:55] LABS: Act87 Hepatitis C IgG Screen Neg (Neg)
[2019-08-15] MEDS: PARoxetine HCl 20 MG TAB PO SCH (11:56)
[2019-08-15] MEDS: LEVOTHYROXINE SODIUM 112 MCG TABLET PO SCH (11:56)
--- NOTE | 2019-08-15 15:15 | Cardiology Progress Note ---
Date of Service August 15, 2019 Assessment & Plan (1) Acute VT: --Post primary PCI with DAYSI to acute mid PDA occlusion 2. Mild non-culprit vessel coronary artery disease 3. Dyslipidemia 4. Tobacco abuse Patient chest pain-free. Troponin peaked. Blood pressure better controlled today Electrically stable. No access site complications. Post procedure labs stable. Echo pending Continue DAPT with aspirin, ticagrelor Continue current metoprolol Increase lisinopril to 5 mg twice daily Continue high intensity statin Smoking cessation stressed From a cardiac standpoint okay with transition to telemetry today. Likely home tomorrow. Admission and Anticipated Discharge Date Admission Date: August 15, 2019 Subjective Patient feeling well today. No recurrent chest pain. Breathing comfortably. Telemetry reviewedno events Review of Systems Review of Systems: All systems reviewed & are unremarkable except as noted in HPI & below Physical Exam Physical Exam: General: Comfortable, no acute distress HEENT: Sclerae anicteric, mucous membranes moist Lungs: Clear to auscultation bilaterally Cardiac: Regular rate and rhythm, 2-6 soft ejection murmur Abdomen: Soft, nontender, nondistended, positive bowel sounds. Extremities: Warm, well perfused, no edema. Right radial artery access site with no ecchymosis, hematoma. Distal pulse and sensation intact. Skin: No rashes or lesions. Neuro: Nonfocal Psych: Alert orient x3, normal affect and mood Results & Data ([facility]) Vital Signs (Past 12 Hours) Vital Signs Temp Pulse Pulse Resp BP BP Pulse Ox 08/15/19 14:00 61 17 94 08/15/19 13:00 75 17 97 08/15/19 12:00 87 17 92 08/15/19 11:00 58 L 19 94 08/15/19 10:00 54 L 20 94 08/15/19 09:21 58 L 15 122/74 95 08/15/19 09:00 82 16 94 08/15/19 08:50 70 15 139/93 94 08/15/19 08:21 71 21 130/80 91 08/15/19 08:00 97.7 F 79 22 92 08/15/19 07:51 63 18 118/67 92 08/15/19 07:21 63 15 153/77 H 94 08/15/19 07:00 70 15 95 08/15/19 06:50 70 135/83 95 08/15/19 06:20 61 145/64 H 96 08/15/19 05:59 70 151/54 H 93 08/15/19 05:10 63 169/88 H 95 08/15/19 04:55 64 156/86 H 93 08/15/19 04:40 58 L 135/78 96 08/15/19 04:25 72 150/69 H 95 08/15/19 04:10 62 140/81 94 08/15/19 03:55 59 L 176/85 H 94 08/15/19 03:40 56 L 171/86 H 93 08/15/19 03:25 58 L 176/82 H 93 Laboratory Results Total cholesterol 215, triglycerides 149, HDL 32, LDL 123, A1c 6.5 PG Care Time/CCT Total # of Minutes Spent Total Time Spent with Patient: Total time spent is greater than 50% in coordination of care (as documented) at patient's floor/unit and/or counseling patient: Coding Level of Care Code 70739 Subseq Hosp Care Lvl 3 Diagnoses Acute VT I21.9
--- NOTE | 2019-08-15 18:56 | Hospitalist Progress Note ---
Date of Service August 15, 2019 Assessment & Plan (1) ST elevation (STEMI) myocardial infarction: Present on admission with chest pain ECG showed sinus rhythm with inferior ST elevations. Heart alert called S/P emergent cardiac cath with acutely 100% occluded mid right PDA. Mild non-culprit vessel coronary artery disease Diffuse 30 to 40% proximal LAD and 40 to 50% small mid circumflex Successful PCI of right PDA with single drug-eluting stent Cardiology on board recommended to continue dual antiplatelet therapy with with aspirin, ticagrelor Continue Atorvastatin 80mg and metorolol 25mg BID Troponin peaked to 20, now trending down to 14 ECHO pending Clinically stable Hypothyroidism Continue Levothyroxine Stable Elevated BS Hgba1c 6.5 on 08/15/19 Counseling pt on lifestyle modification Monitor BS Tobacco abuse Counseling on tobacco cessation DVT prophylaxis per Lovenox subcu Full code Admission and Anticipated Discharge Date Admission Date: August 15, 2019 Subjective Pt was seen and examined Lying in bed with no distress Pt said that she feels fine Denies any chest pain, palpitation, dizziness and SOB Physical Exam Physical Exam: General- No acute distress Head- atraumatic Eyes- PERRL, EOMI, ENT- oropharynx clear Neck- supple, no JVD Lungs- clear to auscultation Heart- regular rhythm Abdomen- normal bowel sounds, soft, nontender Extremities- no calf tenderness, no hematoma in R radial/wrist area Neuro- alert, oriented x 3; PERRL, EOMI; no facial palsy; no dysarthria Skin- warm & dry Results & Data ([facility]) Vital Signs (Past 12 Hours) Vital Signs Temp Pulse Resp BP Pulse Ox 08/15/19 14:00 61 17 94 08/15/19 13:00 75 17 97 08/15/19 12:00 87 17 92 08/15/19 11:00 58 L 19 94 08/15/19 10:00 54 L 20 94 08/15/19 09:21 58 L 15 122/74 95 08/15/19 09:00 82 16 94 08/15/19 08:50 70 15 139/93 94 08/15/19 08:21 71 21 130/80 91 08/15/19 08:00 36.5 C 79 22 92 08/15/19 07:51 63 18 118/67 92 08/15/19 07:21 63 15 153/77 H 94 08/15/19 07:00 70 15 95 (1) ST elevation (STEMI) myocardial infarction Involved coronary artery: unspecified coronary artery Qualified Code(s): I21.3 - ST elevation (STEMI) myocardial infarction of unspecified site
--- NOTE | 2019-08-15 18:59 | Electrocardiogram Report ---
Test Reason : Blood Pressure : / mmHG Vent. Rate : 053 BPM Atrial Rate : 053 BPM P-R Int : 128 ms QRS Dur : 078 ms QT Int : 512 ms P-R-T Axes : -24 073 054 degrees QTc Int : 480 ms Sinus bradycardia Inferior infarct , possibly acute ACUTE CT / STEMI Consider right ventricular involvement in acute inferior infarct Abnormal ECG When compared with ECG of 10-NOV-2017 06:56, Vent. rate has decreased BY [address] elevation now present in Inferior leads Nonspecific T wave abnormality now evident in Lateral leads Confirmed by Twin Gonzales ([id number]) on 08/15/2019 7:01:15 PM Also confirmed by Twin Gonzales ([id number]), writer editor Barak Gomez ([id number]) on 08/16/2019 4:01:28 PM Referred By: REFERRED SELF Confirmed By:Jaleel Gonzales
--- NOTE | 2019-08-15 19:01 | Electrocardiogram Report ---
Test Reason : Blood Pressure : / mmHG Vent. Rate : 078 BPM Atrial Rate : 078 BPM P-R Int : 136 ms QRS Dur : 078 ms QT Int : 406 ms P-R-T Axes : 069 080 079 degrees QTc Int : 462 ms Normal sinus rhythm with sinus arrhythmia Inferior-posterior infarct , possibly acute ACUTE DC / STEMI Consider right ventricular involvement in acute inferior infarct Abnormal ECG When compared with ECG of 10-NOV-2017 06:56, ST elevation now present in Inferior leads ST now depressed in Anterior leads Non-specific change in ST segment in Lateral leads QT has shortened Confirmed by Twin Gonzales ([id number]) on 08/16/2019 6:41:11 PM Referred By: REFERRED SELF Confirmed By:Jaleel Gonzales
[2019-08-15] MEDS: TICAGRELOR 90 MG TAB PO SCH (19:50)
[2019-08-16 04:53] LABS: BUN Creatinine Ratio 15.2 (10-20); Calcium 8.7 mg/dl (8.5-10.1); Creatinine Clr Calc Pharmacy 61.4 ml/min; Est GFR (African American) 73.4; Est GFR (Non-African American) 63.3; Magnesium 2.3 mg/dl (1.8-2.4); Phosphorus 3.5 mg/dl (2.5-4.9)
--- NOTE | 2019-08-16 06:17 | Critical Care Progress Note ---
Date of Service August 16, 2019 Assessment & Plan (1) Admitted to intensive care unit: Reason Critically Ill: 64-year-old female with acute inferior STEMI status post PTCA with DAYSI x1 to the PDA requiring close hemodynamic monitoring status post coronary intervention. In the past 24 hours: Patient has been hemodynamically stable. She has done very well in the post-operative period. Cardiology has cleared her for discharge. From a critical care perspective, she is ready for discharge. NEURO CAM ICU: NEGATIVE -no issues identified CARDIAC/VASCULAR - * Acute inferior STEMI: s/p PTCA w/ DAYSI x1 to the culprit RIGHT PDA. Trop has downtrended. Echo showing normal LV systolic function, no valvular disease, some concentric LVH. continue aspirin, lisinopril, atorvastatin and metoprolol daily. Follow-up per cardiology. RESPIRATORY - * Hx tobacco abuse - Educated on smoking cessation. GI/NUTRITION * AHA diet RENAL/LYTES - * No significant electrolyte derangements. * Cr WNL * No concerns at this time. ENDO - no history of underlying diabetes. Icu protocol for hyperglycemia * Hypothyroidism: Continue home Levothyroxine dosing. HEME * Stable H&H ID * No concerns of infection at this time. LINES/IV ACCESS * PIVs x2 Code Status: Full DVT PROPHYLAXIS * Lovenox * SCDs Admission and Anticipated Discharge Date Admission Date: August 15, 2019 Supervising Physician Co-Signing Physician Notes Dr. Leyva was resident physician during care of patient. I separately evaluated patient for ortiz portions of the history and the exam. I was present during the critical portion of medical decision making, and I discussed the case with the resident. I generally agree with the findings and plan. Discussed with MARINO Alas of cardiology, patient ambulatory chest pain-free, stable for discharge from cardiology standpoint. Subjective Patient in ICU. Reports feeling well. No recurrent chest pain or SOB. Review of Systems Review of Systems: All systems reviewed & are unremarkable except as noted in HPI & below Physical Exam Constitutional: WD/WN, vitals as above + obese Eyes: + anicteric sclerae ENMT: external ear and nose normal, oropharynx normal Neck: normal visual inspection and trachea midline Respiratory: normal respiratory effort, lungs clear to auscultation Auscultation: no crackles, no rales, no rhonchi, no wheezes and no pleural rub Cardiovascular: Rate/Rhythm: regular rate and regular rhythm Heart Sounds: normal S1, normal S2 and + murmur (systolic ejection ) Gastrointestinal (Abdomen): normal bowel sounds, soft, nontender, no hepatosplenomegaly Skin: no rashes, warm and dry Psychiatric: A+Ox3, euthymic affect Results & Data ([facility]) Vital Signs (Past 12 Hours) Vital Signs Temp Pulse Pulse Resp BP BP Pulse Ox 08/16/19 04:53 36.6 C 57 L 11 L 82/48 L 92 08/16/19 03:52 54 L 13 102/59 L 90 08/16/19 02:52 60 20 93/51 L 91 08/16/19 02:27 59 L 20 87/55 L 94 08/16/19 01:53 18 87/55 L 94 08/16/19 00:52 36.5 C 54 L 21 110/61 95 08/15/19 23:52 61 21 111/61 96 08/15/19 22:52 55 L 21 88/54 L 95 08/15/19 22:42 51 L 20 99/53 L 93 08/15/19 21:52 54 L 19 85/46 L 95 08/15/19 20:59 58 L 13 99/61 L 95 08/15/19 19:51 70 21 110/74 93 08/15/19 19:00 36.6 C 66 16 101/59 L 94 Resident Activity Tracking Resident Involvement: Resident Care Provided Care Provided: Adult Hospital Medicine
[2019-08-16] MEDS: LEVOTHYROXINE SODIUM 112 MCG TABLET PO SCH (06:28)
[2019-08-16] MEDS: TICAGRELOR 90 MG TAB PO SCH (08:00)
[2019-08-16] MEDS: METOPROLOL TARTRATE 25 MG TAB PO SCH (08:00)
[2019-08-16] MEDS: PARoxetine HCl 20 MG TAB PO SCH (08:00)
[2019-08-16] MEDS: ATORVASTATIN 40 MG TAB PO SCH (08:00)
[2019-08-16] MEDS: ASPIRIN 81 MG ECTAB PO SCH (08:00)
[2019-08-16] MEDS: lisinopriL 5 MG TAB PO SCH (08:00)
--- NOTE | 2019-08-16 09:30 | Cardiology Progress Note ---
Date of Service August 16, 2019 Assessment & Plan (1) Acute [place]: --Post primary PCI with DAYSI to acute mid PDA occlusion 2. Mild non-culprit vessel coronary artery disease 3. Dyslipidemia 4. Tobacco abuse Patient doing well and anxious to go home. Remains chest pain free. Walked the halls without limiting cardiac symptoms. On exam appears well perfused without signs of heart failure. No access site complications. No events on telemetry. Echo with normal LV function. --OK to discharge from cardiac standpoint, f/u in our office 2 weeks --Continue DAPT with ASA, ticagrelor --Continue metoprolol, lisinopril --Continue high intensity statin --Smoking cessation again reviewed --Will refer to cardiac rehab Admission and Anticipated Discharge Date Admission Date: August 15, 2019 Subjective Patient feeling well today. Anxious to go home. No recurrent chest pain. No shortness of breath. Up walking the halls without limiting cardiac symptoms. No issues at right radial access site. BP lower but no lightheadedness. Tele reviewed, no events. Review of Systems Review of Systems: All systems reviewed & are unremarkable except as noted in HPI & below Physical Exam Physical Exam: General: No acute distress, comfortable. HEENT: Sclerae anicteric. Neck: Normal carotid upstrokes, no bruits. No appreciable JVD. Lungs: Clear to auscultation bilaterally without rales, rhonchi or wheezes. Cardiac: Regular rate and rhythm. S1-S2 normal. Grade 2/6 systolic ejection murmur Abdomen: Soft and nontender. Bowel sounds normal. Extremities/vascular: -- Well perfused. No peripheral edema. -- Radial, DP and PT pulses 2+ bilaterally -- Right radial access site without ecchymosis or hematoma Skin: No rash or abnormal lesions. Normal turgor. Neurologic: Nonfocal Psychiatric: Affect appropriate. Alert and oriented. Results & Data ([facility]) Vital Signs (Past 12 Hours) Vital Signs Temp Pulse Pulse Resp BP BP Pulse Ox 08/16/19 09:00 63 18 92 08/16/19 08:53 62 14 88/61 L 94 08/16/19 08:00 71 23 08/16/19 07:53 65 24 103/60 92 08/16/19 07:00 36.6 C 85 30 H 103/60 93 08/16/19 05:53 54 L 18 95/54 L 91 08/16/19 05:32 59 L 14 91/47 L 93 08/16/19 05:30 52 L 18 80/47 L 90 08/16/19 04:53 36.6 C 57 L 11 L 82/48 L 92 08/16/19 03:52 54 L 13 102/59 L 90 08/16/19 02:52 60 20 93/51 L 91 08/16/19 02:27 59 L 20 87/55 L 94 08/16/19 01:53 18 87/55 L 94 08/16/19 00:52 36.5 C 54 L 21 110/61 95 08/16/19 00:00 54 L 08/15/19 23:52 61 21 111/61 96 08/15/19 22:52 55 L 21 88/54 L 95 08/15/19 22:42 51 L 20 99/53 L 93 08/15/19 21:52 54 L 19 85/46 L 95 Laboratory Results Laboratory Results - last 24 hr 08/15/19 08/16/19 13:13 04:08 Sodium 140 Potassium 4.0 Chloride 106 Carbon Dioxide 33 H Anion Gap 1.0 L BUN 14 D Creatinine 0.95 Est Cr Clr Drug Dosing 61.4 Est GFR ( Amer) 73.4 Est GFR (Non-Af Amer) 63.3 BUN/Creatinine Ratio 15.2 Glucose 122 H Calcium 8.7 Phosphorus 3.5 Magnesium 2.3 Troponin I 14.900 H* PG Care Time/CCT Total # of Minutes Spent Total Time Spent with Patient: Total time spent is greater than 50% in coordination of care (as documented) at patient's floor/unit and/or counseling patient: Coding Level of Care Code 24269 Subseq Hosp Care Lvl 3 Diagnoses Acute [place] I21.9
--- NOTE | 2019-08-16 09:31 | Billing Data ---
Date of Service August 16, 2019 Coding Level of Care Code 73762 Subseq Hosp Care Lvl 1
--- NOTE | 2019-08-16 09:54 | XCELERA ---
[id number] \\[email or web address]_[email or web address]\[id number]
[2019-08-16] MEDS: ENOXAPARIN INJ 40 MG/0.4 ML SYR SQ SCH (10:49)
--- NOTE | 2019-08-16 11:11 | Hospitalist Progress Note ---
Date of Service August 16, 2019 Assessment & Plan (1) ST elevation (STEMI) myocardial infarction: Present on admission with chest pain ECG showed sinus rhythm with inferior ST elevations. Heart alert called S/P emergent cardiac cath with acutely 100% occluded mid right PDA. Mild non-culprit vessel coronary artery disease Diffuse 30 to 40% proximal LAD and 40 to 50% small mid circumflex Successful PCI of right PDA with single drug-eluting stent Cardiology on board recommended to continue dual antiplatelet therapy with with aspirin, ticagrelor On Atorvastatin 80mg and metorolol 25mg BID Case discussed with cardiology correctional classification counselor about and agreed to decrease metoprolol to 12.5 mg BID since her HR has been running in the low 50's Troponin peaked to 20, now trending down to 14 ECHO showed No LV wall motion abnormality with EF 60-65 % OK from cardiology standpoint to discharge home Follow up with cardiology in 1-2 weeks Will need referral to cardiac rehab Bradycardia HR has been in the Low 50's Case discussed with cardiology Dr. Bray who is cover for Dr. Smith and agreed to decrease the metoprolol to 12.5 mg BID Ok from cardiology standpoint to discharge home Hypothyroidism Continue Levothyroxine Stable Elevated BS Hgba1c 6.5 on 08/15/19 Counseling pt on lifestyle modification Monitor BS Tobacco abuse Counseling on tobacco cessation DVT prophylaxis per Lovenox subcu Full code Disposition Will discharge home today Admission and Anticipated Discharge Date Admission Date: August 15, 2019 Subjective Pt was seen and examined Lying in bed with no distress Pt said that she feels fine She said that she walked around with no discomfort Denies any chest pain, palpitation and SOB Physical Exam Physical Exam: General- No acute distress Head- atraumatic Eyes- PERRL, EOMI, ENT- oropharynx clear Neck- supple, no JVD Lungs- clear to auscultation Heart- regular rhythm Abdomen- normal bowel sounds, soft, nontender Extremities- no calf tenderness, no hematoma in R radial/wrist area Neuro- alert, oriented x 3; PERRL, EOMI; no facial palsy; no dysarthria Skin- warm & dry Results & Data ([facility]) Vital Signs (Past 12 Hours) Vital Signs Temp Pulse Pulse Resp BP BP Pulse Ox 08/16/19 09:53 49 L 14 93/55 L 90 08/16/19 09:00 63 18 92 08/16/19 08:53 62 14 88/61 L 94 08/16/19 08:00 71 23 08/16/19 07:53 65 24 103/60 92 08/16/19 07:00 36.6 C 85 30 H 103/60 93 08/16/19 05:53 54 L 18 95/54 L 91 08/16/19 05:32 59 L 14 91/47 L 93 08/16/19 05:30 52 L 18 80/47 L 90 08/16/19 04:53 36.6 C 57 L 11 L 82/48 L 92 08/16/19 03:52 54 L 13 102/59 L 90 08/16/19 02:52 60 20 93/51 L 91 08/16/19 02:27 59 L 20 87/55 L 94 08/16/19 01:53 18 87/55 L 94 08/16/19 00:52 36.5 C 54 L 21 110/61 95 08/16/19 00:00 54 L 08/15/19 23:52 61 21 111/61 96 (1) ST elevation (STEMI) myocardial infarction Involved coronary artery: unspecified coronary artery Qualified Code(s): I2 1.3 - ST elevation (STEMI) myocardial infarction of unspecified site
--- NOTE | 2019-08-16 11:35 | Discharge Summary ---
Date of Service August 16, 2019 Admission HPI Per Admitting Provider History obtained from patient and records. Medical history significant for hypothyroidism, mood disorder, ongoing tobacco abuse. Recent confinement November 2017 for chest pain. No inducible ischemia on stress echo. 2 nights ago patient was watching television when she experienced achy substernal discomfort going to her jaw and arm associated with shortness of breath and diaphoreses, intermittent symptoms. Episode more prolonged and intense last night. Some relief with nitro administered by EMS. Heart alert called upon arrival at the ER. Patient underwent diagnostic cardiac catheterization and PCI. Patient currently comfortable in the ICU. 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 Admission Exam Per Admitting Provider GENERAL: Comfortable, pleasant, obese, no respiratory distress SKIN: Normal color, warm HEENT: Bespectacled, [place] palpebral conjunctivae, no ptosis, moist buccal mucosa NECK : Supple, short neck, no tenderness CHEST : CTA, no tenderness HEART : RRR, systolic murmur ABDOMEN: Some distention, nontender EXTREMITIES : No LE swelling/tenderness, no other conspicuous deformities noted NEUROLOGIC : Coherent, no facial asymmetry, no other gross focality Principal Diagnosis ST elevation (STEMI) myocardial infarction: Hypothyroidism Elevated Glucose Tobacco abuse Discharge Exam General- No acute distress Head- atraumatic Eyes- PERRL, EOMI, ENT- oropharynx clear Neck- supple, no JVD Lungs- clear to auscultation Heart- +Bradycardiac Abdomen- normal bowel sounds, soft, nontender Extremities- no calf tenderness, no hematoma in R radial/wrist area Neuro- alert, oriented x 3; PERRL, EOMI; no facial palsy; no dysarthria Skin- warm & dry Discharge Data Allergies Allergy/AdvReac Type Severity Reaction Status Date / Time cephalexin Allergy Unknown face Unverified 08/15/19 00:02 swelling erythromycin base Allergy Unknown nausea, Unverified 08/15/19 00:02 vomitting Sulfa (Sulfonamide Allergy Unknown face Unverified 08/15/19 00:02 Antibiotics) swelling Consultations 08/15/19 00:13 ED Decision to Admit Stat 08/15/19 01:19 Consult Cardiac Rehabilitation Routine Consult Case Management - Discharge Planning Routine 08/15/19 01:20 Consult Band Maker Routine Procedures Performed Operation Date: 08/14/19 11:55 Actual Procedures s Cineradiography w/Routine Exam - Ritesh Smith MD p Aspiration/PCI w/DAYSI for Stemi - Ritesh Smith MD Ordered Studies 08/14/19 23:59 CL Cath Imgs for PACS use only Stat 08/15/19 00:14 CL Cath Imgs for PACS use only Routine 08/15/19 00:17 CL Cath Imgs for PACS use only Stat XR chest 1V portable CLINICAL HISTORY: Atypical chest pain COMPARISON STUDY: 11/09/2017 FINDINGS: The cardiac and mediastinal contours are normal. There is no evidence of focal pulmonary consolidation. There is no evidence of failure. No pleural effusions are visualized.[ IMPRESSION: No active disease in the chest. ACT 112: Negative or not required by law. Electronically signed by: Aleksander Beltran M.D. 08/15/2019 6:40 AM Dictated: 08/15/19638 Transcribed: 08/15/19638 ACC Data: [employer] Cardiac Status Clinical evaluation leading to the procedure CAD Presenation: STEMI Anginal Classification: CCS IV Heart Failure: No Cardiogenic Shock within 24 Hours: No Cardiac Arrest within 24 Hours: No Imaging Studies Past 6 Months: No Stress Studies Past 6 Months: No Diagnostic Physicians Name: Twin Smith MD Status: Emergency Closure Device Percutaneous Entry Location: Radial Closure Device: Radial Band Recommendations: PCI without planned CABG PCI Indication: Immediate PCI for STEMI First Noted: Subsequent EKG Lesion Segment Name: PDA Culprit Artery: Yes Stenosis Prior to Rx (%): 100 Chronic Total Occlusion: No IVUS: No FFR: No Pre-Procedure DIANE Flow: 0 Previously Treated Lesion: No Lesion Complexity: Non-High/Non-C Lesion Length (mm): 10 Thrombus Present: Yes Bifurcation Lesion: No Guidewire Across Lesion: Stenosis Post-Procedure (%): 0 Post-Procedure DIANE Flow: 3 Devices(s) Deployed: Yes Yes Intraprocedure Events Significant Disection: No Perforation: No Cardiac Cath Procedure Full Procedure Date August 15, 2019 Pre-Procedure Diagnosis Pre-Procedure Diagnosis: STEMI AUC Score AUC Score: 9 Post-Procedure Diagnosis Post-Procedure Diagnosis: Severe CAD, Successful PCI and Normal Intracardiac Pressures Procedure(s) Performed Procedure(s) Performed: Coronary Angiography, Left Heart Cath and Drug Eluting Stent Brick Handler Twin Smith MD Telephonic Case Manager(s) Ole Aguirre Estimated Blood Loss Estimated Blood Loss: 10 Medication(s) Medication(s): Fentanyl, Heparin, Lidocaine 1%, Nicardipine, Nitroglycerin and Versed Medication(s): Ticagrelor Summary of Findings Indication: STEMI/Heart Alert Access: 6 Fr slender right radial artery Catheters: Ikari 3.5 guide, pigtail Findings: LM -long, medium caliber without significant disease LAD -medium caliber vessel, diffuse 30 to 40% proximal disease mid to distal vessel is tortuous with luminal irregularities and wraps around apex. Gives off small diagonals without significant Circumflex -small caliber vessel. Gives off medium caliber high OM1 without significant disease. Small mid circumflex with 40 to 50% disease RCA -dominant, large caliber vessel, 30 to 40% ostial, mild proximal disease, 30 to 40% mid segment disease, right PDA 1% acute occlusion. Distal vessel initially fills via [id number] collaterals. LVEDP -15 -- PCI -- Antithrombotic therapy: Heparin, ticagrelor Procedure: RCA cannulated with Ikari left 3.5 guide Manager Gaming 50 wire passed across lesion into distal vessel Mid PDA lesion predilated with 2.5 compliant balloon Dilated lesion stented with 2.5 x 18 mm Justin drug-eluting Stent post-dilated with 2.75 noncompliant balloon IC vasodilators administered for spasm Post procedure DIANE 3 flow, stent well expanded with minimal residual stenosis and no apparent cardiac complications. Arterial Closure: TR band Summary: 1. Inferior STEMI/acutely 100% occluded mid right PDA 2. Mild non-culprit vessel coronary artery disease -Diffuse 30 to 40% proximal LAD 40 to 50% small mid circumflex 3. Normal intracardiac filling pressure 4. Successful PCI of right PDA with single drug-eluting stent (2.5 x 18 mm Justin; postdilated with 2.75 NC) Recommendations: Admit to ICU for continued monitoring Loaded with ticagrelor 180 mg in the emergency department Continue dual-antiplatelet therapy for at least 1 year. Trend troponins until peak, Check Echo Uptitrate beta-cristopher/CATHERINE as BP allows High-dose statin Consult cardiac Rehab Hemodynamics Rest Ao:: 207/78/129 Final Ao: 138/64/92 LV: 144/15 Recommendations Recommendations: PCI without planned CABG Specimens Specimens: None Radiation Exposure (mGy) 2578 Contrast (mls) 160 Fluids (cc crystalloids) Fluids (cc crystalloids): 75 Drains Drains: None Anesthesia Moderate Procedural Complication(s) None Disposition ICU I attest to the content of the Intraoperative Record and any orders documented therein. Any exceptions are noted below. [facility] Card Cath Procedure Codes Cardiac Catheterization Procedure 1: Cardiovascular Cath Procedures: 53511 Coronaries and LHC (+/-LV) Moderate Sedation Procedure 1: Sedation/Anesthesia: 66494 Mod Sedation by the same physician;Init15 Min Child Age 5 & Up Procedure 2: Sedation/Anesthesia: 95837 Mod Sedation by the same physician; Ea Agngcgplic91 Minutes Stenting Procedure 1: Cardiovascular Stent Procedures: 11164 Perc transluminal revascularization of acute sub/total occl, aMI PG Care Time/CCT Total # of Minutes Spent Total Time Spent with Patient: Total time spent is greater than 50% in coordination of care (as documented) at patient's floor/unit and/or counseling patient: Signed By:<Electronically signed by Ritesh Smith MD>{f rep sign date/time1] Created/Dictated: 08/15/19 012 Transcribed: 08/15/19 012Transcriptionist: BRITTNEY [facility] Course (1) ST elevation (STEMI) myocardial infarction: Present on admission with chest pain ECG showed sinus rhythm with inferior ST elevations. Heart alert called S/P emergent cardiac cath with acutely 100% occluded mid right PDA. Mild non- culprit vessel coronary artery disease Diffuse 30 to 40% proximal LAD and 40 to 50% small mid circumflex Successful PCI of right PDA with single drug-eluting stent Cardiology on board recommended to continue dual antiplatelet therapy with with aspirin, ticagrelor On Atorvastatin 80mg and metorolol 25mg BID Case discussed with cardiology telephone betting clerk about and agreed to decrease metoprolol to 12.5 mg BID since her HR has been running in the low 50's Troponin peaked to 20, now trending down to 14 ECHO showed No LV wall motion abnormality with EF 60-65 % OK from cardiology standpoint to discharge home Follow up with cardiology in 1-2 weeks Will need referral to cardiac rehab Bradycardia HR has been in the Low 50's Case discussed with cardiology Dr. Bray who is cover for Dr. Smith and agreed to decrease the metoprolol to 12.5 mg BID Ok from cardiology standpoint to discharge home Hypothyroidism Continue Levothyroxine Stable Elevated BS Hgba1c 6.5 on 08/15/19 Counseling pt on lifestyle modification Monitor BS Tobacco abuse Counseling on tobacco cessation DVT prophylaxis per Lovenox subcu Full code Disposition Will discharge home today Total Time Total Time Spent Total Time Spent (In Minutes): 35 minutes Total Time Includes: Examination of the Patient, Discharge Planning, Medication Reconciliation, Communication With Other Providers and Other Discharge Plan Discharge Items Patient Disposition: Home - Self-Care Reason For Visit: ACUTE AR Discharge Diagnosis: ST elevation (STEMI) myocardial infarction: Hypothyroidism Elevated Glucose Tobacco abuse Activity: Resume your previous activity Non-emergency contact: Primary Care Provider and Brick Handler Call non-emergency contact if: you have any medication questions Follow-up/Referrals: Charlie Sanchez MD [Primary Care Provider] - Diet: Heart Healthy Addtl Attending Provider Instructions: Follow up with your primary care provider Dr. Sanchez within 1 week Follow up with [facility] cardiology in 2 weeks Continue dual antiplatelet therapy with no interruption with Brillinta and aspirin You will need referral for cardiac rehab (your cardiology will refer you) Counseling on smoking cessation Check HBA1c between 3 to 4 months Since starting on Lisinopril, please check BMP in 1 week to monitor your electrolytes and kidney function Since starting on Atorvastatin, check LFT in 1 to 2 weeks to monitor your liver function watch for any abnormal bleeding such as blood in your urine, stool while taking Brillinta and Aspirin. If there is any abnormal bleeding, please notify your physician or seek medical attention Keep the area for the cardiac cath clean and dry to avoid any infection Do not use creams, lotions or ointment on the wound site Do not take a bath, tub soak, go in a Jacuzzi, or swim in a pool or amaya for one week after the procedure. Do not participate in strenuous activities for 3 days after the procedure. Gradually increase your activities until you reach your normal activity level within two days after the procedure. Avoid heavy lifting (more than 10 pounds) and pushing or pulling heavy objects for the first 5 days after the procedure. Pending Studies at Discharge: No Stand-Alone Forms: My Adform, Smoking Cessation Medications and DC Order Prescriptions: New atorvastatin 40 mg Tablet 80 mg PO QAM 30 Days Qty: 60 RF: 0 nitroglycerin [Nitrostat] 0.4 mg Tablet, Sublingual 0.4 mg sublingual PRN PRN (Reason: chest pain) Qty: 30 RF: 0 lisinopril [Zestril] 5 mg Tablet 5 mg PO BID 30 Days Qty: 60 RF: 0 metoprolol tartrate 25 mg Tablet 12.5 mg PO BID 30 Days Qty: 30 RF: 0 Brilinta 90 mg Tablet 90 mg PO BID 30 Days Qty: 60 RF: 0 aspirin 81 mg Tablet,Delayed Release (Dr/Ec) 81 mg PO QAM 30 Days Qty: 30 RF: 0 Continued paroxetine HCl 40 mg tablet 40 mg PO DAILY RF: 0 levothyroxine 112 mcg tablet 112 mcg PO DAILY RF: 0 Discharge Orders: Discharge Order (Routine); Ordered 08/16/19 Ordered By: Rudy Villanueva/Other Patient Handouts: Diabetes Healthy Meals, Diabetes Exercise Benefits, A1C Admission Data Admit Date/Time: 08/15/19 01:20 Attending Provider: Rudy Figueroa Admit Provider: Ritesh Smith Primary Care Provider: Charlie Sanchez Other Providers: Ari Garvin ; Burke Frazier
--- NOTE | 2019-08-16 16:01 | Electrocardiogram Report ---
Test Reason : Blood Pressure : / mmHG Vent. Rate : 064 BPM Atrial Rate : 064 BPM P-R Int : 140 ms QRS Dur : 080 ms QT Int : 486 ms P-R-T Axes : 038 073 052 degrees QTc Int : 501 ms Normal sinus rhythm Inferior infarct (cited on or before 15-AUG-2019) ACUTE PA / STEMI Consider right ventricular involvement in acute inferior infarct Abnormal ECG When compared with ECG of 15-AUG-2019 01:29, (unconfirmed) No significant change was found Confirmed by Twin Gonzales ([id number]) on 08/15/2019 6:59:22 PM Also confirmed by Twin Gonzales ([id number]), editor continuity and script Barak Gomez ([id number]) on 08/16/2019 4:00:44 PM Referred By: REFERRED SELF Confirmed By:Jaleel Gonzales
== END 2019-08-16 13:00 | disposition home or self-care (01) | DRG 247 ==
LOC: ED 23:48 → CC 08-15 00:20 → 1E 08-15 01:20

== ENCOUNTER 2021-02-21 17:24 | Inpatient (IN) ==
[2021-02-21] MEDS ORDERED: ALBUT/IPRATROP 3MG/0.5MG NEB 3 ML VIAL NEB STA (18:55)
[2021-02-21] MEDS ORDERED: methylPREDNISolone 125 MG/2 ML VIAL IV STA (18:55)
--- NOTE | 2021-02-21 19:00 | XRay Report ---
XR chest 1V portable CLINICAL HISTORY: SEPSIS COMPARISON STUDY: Chest radiograph August 14, 2019. FINDINGS: Lung volumes are normal. Lungs are clear. There is no pneumothorax or pleural effusion. Car diac size is normal. Mediastinal contours are normal. There is no evidence for pulmonary edema. Mild interstitial thickening is unchanged. IMPRESSION: No acute cardiopulmonary findings. ACT 112: Negative or not required by law. Electronically signed by: Gerry Willis M.D. 02/21/2021 6:58 PM
[2021-02-21 19:06] LABS: Basophils # (auto) 0.01 K/uL (0-0.2); Basophils % (auto) 0.1 %; Eosinophils # (auto) 0.11 K/uL (0-0.5); Eosinophils % (auto) 0.9 %; Hematocrit (blood only) 43.1 % (37-47); Hemoglobin 14.8 g/dL (12.0-16.0); Immature Granulocytes # (auto) 0.04 K/uL (0.00-0.02); Immature Granulocytes % (auto) 0.3 %; Lymphocytes # (auto) 1.49 K/uL (1.2-3.4); Lymphocytes % (auto) 11.9 %; Mean Corpuscular Hemoglobin 31.3 pg (25-34); Mean Corpuscular Hgb Conc 34.3 g/dL (32-36); Mean Corpuscular Volume 91.1 fL (80-100); Mean Platelet Volume 10.3 fL (7.4-10.4); Monocytes # (auto) 0.91 K/uL (0.11-0.59); Monocytes % (auto) 7.2 %; Neutrophils % (auto) 79.6 %; Platelet Count 192 K/uL (130-400); RDW Coefficient of Variation 13.3 % (11.5-14.5); RDW Standard Deviation 44.7 fL (36.4-46.3); Red Blood Count 4.73 M/uL (4.2-5.4); White Blood Count 12.56 K/uL (4.8-10.8)
[2021-02-21 19:21] LABS: Partial Thromboplastin Time 27.1 Seconds (21.0-31.0); Prothrombin Time 10.2 Seconds (9.0-12.0)
[2021-02-21 19:21] LABS: Base Excess VBG 3.5 mEq/L; HCO3 VBG 30 mmol/L; PCO2 VBG 50 mmHg (38-50); PO2 VBG 17 mmHg; pH VBG 7.39 (7.36-7.41)
[2021-02-21 19:23] LABS: Alanine Aminotransferase 22 U/L (12-78); Albumin Level 3.1 gm/dl (3.4-5.0); Aspartate Aminotransferase 22 U/L (15-37); BUN Creatinine Ratio 8.1 (10-20); Blood Urea Nitrogen 11 mg/dl (7-18); Calcium 8.9 mg/dl (8.5-10.1); Carbon Dioxide 28 mmol/L (21-32); Chloride 98 mmol/L (98-107); Creatinine Clr Calc Pharmacy 43.6 ml/min; Est GFR (African American) 50.3 ml/min; Est GFR (Non-African American) 43.4 ml/min; Glucose 110 mg/dl (70-99); Magnesium 2.1 mg/dl (1.8-2.4); Potassium 3.5 mmol/L (3.5-5.1); Sodium 135 mmol/L (136-145)
[2021-02-21 19:28] LABS: Albumin Globulin Ratio 0.7 (0.9-2); Alkaline Phosphatase 82 U/L (45-117); Bilirubin,Total 1.4 mg/dl (0.2-1); Globulin 4.6 gm/dl (2.5-4.0); Total Protein 7.7 gm/dl (6.4-8.2); Troponin I < 0.015 ng/ml (0-0.045)
[2021-02-21 19:31] LABS: Oxygen Saturation VBG < 60.0 %
[2021-02-21] MEDS ORDERED: OPTIRAY 320 125ml IV ONE (20:11)
--- NOTE | 2021-02-22 01:08 | Emergency Department Note ---
History of Present Illness General Chief Complaint: Illness Stated Complaint: Nausea, Diarrhea, Chills, body aches Time Seen by Provider: 02/21/21 18:33 History of Present Illness Provider Complaint: shortness of breath and cough Onset (ago): day(s) (3) Severity: moderate Consistency/Duration: + constant Maximum Pain Intensity: 3 Current Pain Intensity: 3 Relieved By: + oxygen Context: + recent illness Known history of: COPD Associated symptoms: + fever, + cough, + wheezing and + nausea/vomiting; no chest pain, no orthopnea, no abdominal pain or no lightheadedness HPI Narrative: 65-year-old female presents emergency department with nausea, v omiting, diarrhea, cough, subjective fevers, and difficulty breathing. Patient does have a history of COPD. Patient is vaccine gets COVID-19 with the [employer] vaccine. Patient denies any hemoptysis. No recent travel. No exogenous hormone usage. No syncope. No chest pain. Home Medications Medication Instructions Recorded Confirmed Type paroxetine HCl 40 mg tablet (Paxil) 40 mg PO QAM 08/15/19 02/21/21 History nitroglycerin 0.4 mg sublingual 0.4 mg SUBLINGUAL PRN PRN #30 tab 08/16/19 02/21/21 Rx tablet (Nitrostat) pantoprazole 40 mg tablet,delayed 40 mg PO QAM 08/29/19 02/21/21 History release (Protonix) tizanidine 4 mg tablet (Zanaflex) 4 mg PO Q8H PRN 08/29/19 02/21/21 History lisinopril 5 mg tablet (Zestril) 5 mg PO BID 90 Days #180 tab 08/30/19 02/21/21 Rx metoprolol tartrate 25 mg tablet 12.5 mg PO BID 90 Days #90 tab 08/30/19 02/21/21 Rx acetaminophen 500 mg tablet 1,000 mg PO QID PRN 08/31/19 02/21/21 History (Tylenol Extra Strength) albuterol sulfate 90 mcg/actuation 2 puff INHALATION QID PRN 08/31/19 02/21/21 History aerosol inhaler (Ventolin HFA) levothyroxine 112 mcg tablet 112 mcg PO .COMPLEX 09/08/20 02/21/21 History metformin 500 mg tablet,extended 1,000 mg PO QAM tab 09/08/20 02/21/21 History release 24 hr atorvastatin 40 mg tablet 80 mg PO QAM 90 Days #180 tab 09/09/20 02/21/21 Rx clopidogrel 75 mg tablet 75 mg PO DAILY #90 tab 10/27/20 02/21/21 Rx aspirin 81 mg tablet,delayed 81 mg PO DAILY 02/22/21 02/22/21 History release Allergies Allergy/AdvReac Type Severity Reaction Status Date / Time cephalexin Allergy Unknown face Unverified 02/21/21 18:42 swelling erythromycin base Allergy Unknown nausea, Unverified 02/21/21 18:42 vomitting Sulfa (Sulfonamide Allergy Unknown face Unverified 02/21/21 18:42 Antibiotics) swelling Past Med/Surg History Medical History (Updated 02/22/21 @ 01:08 by Danyel Koch) COPD (chronic obstructive pulmonary disease) Coronary artery disease Depression Dermatitis DJD (degenerative joint disease), cervical HLD (hyperlipidemia) Hypothyroidism Tobacco use disorder Social History (Updated 02/22/21 @ 00:59 by Danyel Koch) Smoking Status: Current every day smoker Tobacco Type: Cigarettes Hx Alcohol Use: No Hx Substance Use: No Preferred Language: Sri Lankan Communication Ability: Effective Beliefs That Will Affect Care: None Current Living Situation: Alone Feels Safe at Home: Yes Assistive Devices: Glasses and Oxygen - Continuous Review of Systems A total of 10 systems reviewed and were otherwise negative Physical Exam Vital Signs: Vital Signs - 24 hr 02/21/21 17:27 02/21/21 18:16 02/21/21 18:47 Temperature 36.4 C L Temperature Source Temporal Artery Sc an Pulse Rate 113 H Pulse Rate [Apical ] 96 H 98 H Pulse Rhythm [Apic al] Regular Pulse Strength [Ap ical] Respiratory Rate 18 24 19 Respiratory Effort / Characteristics Non-Labored Respiratory Depth Normal Normal Blood Pressure 115/64 Blood Pressure [Ri ght Arm] 132/71 126/75 Blood Pressure Moon n 81 Blood Pressure Moon n [Right Arm] 91 92 Blood Pressure Pos ition [Right Arm] Pulse Oximetry 92 86 L 94 Oxygen Delivery Me thod Room Air Nasal Cannula Nasal Cannula Oxygen Flow Rate 0 2 Sepsis Recent Feve r Within 48 Hours No Sepsis New/Unexpla ined Change in Men speedy Status No Sepsis Action Take n by Nursing No Action Required Oxygen Flow Rate - Titration 2 Pulse Oximetry Pos t Tiitration 92 02/21/21 19:05 02/21/21 19:06 02/21/21 19:45 Temperature Temperature Source Pulse Rate Pulse Rate [Apical ] 89 86 Pulse Rhythm [Apic al] Regular Pulse Strength [Ap ical] Respiratory Rate 18 17 16 Respiratory Effort / Characteristics Non-Labored Non-Labored Sponta neous Respiratory Depth Normal Blood Pressure Blood Pressure [Ri ght Arm] 122/64 Blood Pressure Moon n Blood Pressure Moon n [Right Arm] 83 Blood Pressure Pos ition [Right Arm] Lying Pulse Oximetry 96 96 97 Oxygen Delivery Me thod Nasal Cannula Nasal Cannula Nasal Cannula Oxygen Flow Rate 2 2 3 Sepsis Recent Feve r Within 48 Hours Sepsis New/Unexpla ined Change in Men speedy Status Sepsis Action Take n by Nursing Oxygen Flow Rate - Titration Pulse Oximetry Pos t Tiitration 02/21/21 20:04 02/21/21 20:27 Temperature Temperature Source Pulse Rate Pulse Rate [Apical ] 100 H 94 H Pulse Rhythm [Apic al] Regular Pulse Strength [Ap ical] Normal Respiratory Rate 19 16 Respiratory Effort / Characteristics Non-Labored Respiratory Depth Normal Normal Blood Pressure Blood Pressure [Ri ght Arm] 118/80 Blood Pressure Moon n Blood Pressure Moon n [Right Arm] 92 Blood Pressure Pos ition [Right Arm] Pulse Oximetry 96 95 Oxygen Delivery Me thod Nasal Cannula Nasal Cannula Oxygen Flow Rate 2 2 Sepsis Recent Feve r Within 48 Hours Sepsis New/Unexpla ined Change in Men speedy Status Sepsis Action Take n by Nursing Oxygen Flow Rate - Titration Pulse Oximetry Pos t Tiitration Physical Exam: Physical Exam GENERAL: She is oriented to person, place, and time. She appears well-developed and well-nourished. She does not appear distressed. HENT: Exam performed. -Head: Normocephalic and atraumatic. -Right Ear: External ear normal. No mastoid tenderness. -Left Ear: External ear normal. No mastoid tenderness. -Mouth/Throat: The oropharynx is clear and moist. No trismus in the jaw. No dental abscesses or uvula swelling. No oropharyngeal exudate or tonsillar abscesses. EYES: Conjunctivae and EOM are normal. Pupils are equal, round, and reactive to light. Right eye exhibits no discharge. Left eye exhibits no discharge. No scleral icterus. NECK: Normal range of motion. Neck supple. No JVD present. No spinous process tenderness present. No carotid bruit present. No rigidity. No tracheal deviation and normal range of motion present. No Brudzinski's sign and no Kernig's sign noted. CV: Normal rate, regular rhythm, normal heart sounds and intact distal pulses. There is no peripheral edema. Palpable radial pulses bue. PULM/CHEST: Diminished breath sounds bilaterally. Scant expiratory wheezes at the bases bilaterally. -Chest Wall: She exhibits no tenderness. ABD: The abdomen is soft. Bowel sounds are normal. She has no distension. No mass is present. There is no tenderness. There is no rebound, no guarding, no Armstrong's sign and no tenderness at McBurney's point. Rovsig negative MUSC/SKEL: Normal range of motion. There is no peripheral edema, tenderness or deformity. LYMPH: No cervical adenopathy. NEURO: She is alert and oriented to person, place, and time. She has normal strength. No cranial nerve deficit or sensory deficit. Coordination and gait normal. GCS eye subscore is 4. GCS verbal subscore is 5. GCS motor subscore is 6. Cerebellar tests wnl. SKIN: Skin is warm and dry. She is not diaphoretic. PSYCH: She has a normal mood and affect. Behavior is normal. Judgment and thought content normal. Course Course 1832: The patient was evaluated in room C9. A complete history and physical exam was performed Cardiac monitoring: An order was placed for continuous cardiac monitoring. The monitor shows a rate of 90 with sinus rhythm Patient hypoxic on room air in the mid 80s. Patient placed on supplemental oxygen via nasal cannula which improved her oxygen saturation. 1999: Vital signs stable on supplemental oxygen. Patient no longer wheezing after DuoNeb and Solu-Medrol. Covid negative. Will obtain CT of the chest. 2229: Vital signs stable on supplemental oxygen via nasal cannula. CTA of the chest is within normal limits, no PE. Patient will be admitted to the [facility] team for COPD exacerbation. Administered Medications Discontinued Medications Albuterol (Albut/Ipratrop 3mg/0.5mg Neb 3 Ml Vial) 3 ml NEB NOW STA Stop: 02/21/21 18:56 Last Admin: 02/21/21 19:44 Dose: 3 ml Documented by: [id number] Ioversol (Optiray 320 125ml) 120 ml IV ONCE ONE Stop: 02/21/21 20:12 Last Admin: 02/21/21 20:11 Dose: 120 ml Documented by: [id number] Methylprednisolone (Methylprednisolone 125 Mg/2 Ml Vial) 125 mg IV NOW STA Stop: 02/21/21 18:56 Last Admin: 02/21/21 19:14 Dose: 125 mg Documented by: [id number] Medical Decision Making Laboratory Data Result diagrams: 02/21/21 18:50 02/21/21 18:50 Lab Results 02/21/21 02/21/21 02/21/21 Range/Units 18:50 18:50 18:50 WBC 12.56 H (4.8-10.8) K/uL RBC 4.73 (4.2-5.4) M/uL Hgb 14.8 (12.0-16.0) g/dL Hct 43.1 (37-47) % MCV 91.1 (80-100) fL MCH 31.3 (25-34) pg MCHC 34.3 (32-36) g/dL RDW Std Deviation 44.7 (36.4-46.3) fL RDW Coeff of Jessica 13.3 (11.5-14.5) % Plt Count 192 (130-400) K/uL MPV 10.3 (7.4-10.4) fL Immature Gran % (Auto) 0.3 % Neut % (Auto) 79.6 % Lymph % (Auto) 11.9 % Burt % (Auto) 7.2 % Eos % (Auto) 0.9 % Baso % (Auto) 0.1 % Neut # (Auto) 10.00 H (1.4-6.5) K/uL Lymph # (Auto) 1.49 (1.2-3.4) K/uL Burt # (Auto) 0.91 H (0.11-0.59) K/uL Eos # (Auto) 0.11 (0-0.5) K/uL Baso # (Auto) 0.01 (0-0.2) K/uL Immature Gran # (Auto) 0.04 H (0.00-0.02) K/uL PT (9.0-12.0) Seconds INR (0.9-1.1) APTT (21.0-31.0) Seconds PTT Ratio VBG pH (7.36-7.41) VBG pCO2 (38-50) mmHg VBG pO2 mmHg VBG HCO3 mmol/L VBG O2 Saturation % VBG Base Excess mEq/L Barometric Pressure mm/Hg Sodium 135 L (136-145) mmol/L Potassium 3.5 (3.5-5.1) mmol/L Chloride 98 (98-107) mmol/L Carbon Dioxide 28 (21-32) mmol/L Anion Gap 9.0 (3-11) BUN 11 (7-18) mg/dl Creatinine 1.29 H (0.6-1.2) mg/dl Est Cr Clr Drug Dosing 43.6 ml/min Est GFR ( Amer) 50.3 ml/min Est GFR (Non-Af Amer) 43.4 ml/min BUN/Creatinine Ratio 8.1 L (10-20) Glucose 110 H (70-99) mg/dl Lactate (0.4-2.0) mmol/L Calcium 8.9 (8.5-10.1) mg/dl Magnesium 2.1 (1.8-2.4) mg/dl Total Bilirubin 1.4 H (0.2-1) mg/dl AST 22 (15-37) U/L ALT 22 (12-78) U/L Alkaline Phosphatase 82 (45-117) U/L Troponin I < 0.015 (0-0.045) ng/ml Total Protein 7.7 (6.4-8.2) gm/dl Albumin 3.1 L (3.4-5.0) gm/dl Globulin 4.6 H (2.5-4.0) gm/dl Albumin/Globulin Ratio 0.7 L (0.9-2) Procalcitonin 0.52 H (0-0.5) ng/ml COVID-19 Eval Order SARS-CoV-2 (PCR) (Negative) 02/21/21 02/21/21 02/21/21 Range/Units 18:50 18:50 18:50 WBC (4.8-10.8) K/uL RBC (4.2-5.4) M/uL Hgb (12.0-16.0) g/dL Hct (37-47) % MCV (80-100) fL MCH (25-34) pg MCHC (32-36) g/dL RDW Std Deviation (36.4-46.3) fL RDW Coeff of Jessica (11.5-14.5) % Plt Count (130-400) K/uL MPV (7.4-10.4) fL Immature Gran % (Auto) % Neut % (Auto) % Lymph % (Auto) % Burt % (Auto) % Eos % (Auto) % Baso % (Auto) % Neut # (Auto) (1.4-6.5) K/uL Lymph # (Auto) (1.2-3.4) K/uL Burt # (Auto) (0.11-0.59) K/uL Eos # (Auto) (0-0.5) K/uL Baso # (Auto) (0-0.2) K/uL Immature Gran # (Auto) (0.00-0.02) K/uL PT 10.2 (9.0-12.0) Seconds INR 1.0 (0.9-1.1) APTT 27.1 (21.0-31.0) Seconds PTT Ratio 1.0 VBG pH (7.36-7.41) VBG pCO2 (38-50) mmHg VBG pO2 mmHg VBG HCO3 mmol/L VBG O2 Saturation % VBG Base Excess mEq/L Barometric Pressure mm/Hg Sodium (136-145) mmol/L Potassium (3.5-5.1) mmol/L Chloride (98-107) mmol/L Carbon Dioxide (21-32) mmol/L Anion Gap (3-11) BUN (7-18) mg/dl Creatinine (0.6-1.2) mg/dl Est Cr Clr Drug Dosing ml/min Est GFR ( Amer) ml/min Est GFR (Non-Af Amer) ml/min BUN/Creatinine Ratio (10-20) Glucose (70-99) mg/dl Lactate (0.4-2.0) mmol/L Calcium (8.5-10.1) mg/dl Magnesium (1.8-2.4) mg/dl Total Bilirubin (0.2-1) mg/dl AST (15-37) U/L ALT (12-78) U/L Alkaline Phosphatase (45-117) U/L Troponin I (0-0.045) ng/ml Total Protein (6.4-8.2) gm/dl Albumin (3.4-5.0) gm/dl Globulin (2.5-4.0) gm/dl Albumin/Globulin Ratio (0.9-2) Procalcitonin (0-0.5) ng/ml COVID-19 Eval Order Covid19 at [facility] SARS-CoV-2 (PCR) NEGATIVE (Negative) 02/21/21 02/21/21 Range/Units 19:10 19:10 WBC (4.8-10.8) K/uL RBC (4.2-5.4) M/uL Hgb (12.0-16.0) g/dL Hct (37-47) % MCV (80-100) fL MCH (25-34) pg MCHC (32-36) g/dL RDW Std Deviation (36.4-46.3) fL RDW Coeff of Jessica (11.5-14.5) % Plt Count (130-400) K/uL MPV (7.4-10.4) fL Immature Gran % (Auto) % Neut % (Auto) % Lymph % (Auto) % Burt % (Auto) % Eos % (Auto) % Baso % (Auto) % Neut # (Auto) (1.4-6.5) K/uL Lymph # (Auto) (1.2-3.4) K/uL Burt # (Auto) (0.11-0.59) K/uL Eos # (Auto) (0-0.5) K/uL Baso # (Auto) (0-0.2) K/uL Immature Gran # (Auto) (0.00-0.02) K/uL PT (9.0-12.0) Seconds INR (0.9-1.1) APTT (21.0-31.0) Seconds PTT Ratio VBG pH 7.39 (7.36-7.41) VBG pCO2 50 (38-50) mmHg VBG pO2 17 mmHg VBG HCO3 30 mmol/L VBG O2 Saturation < 60.0 % VBG Base Excess 3.5 mEq/L Barometric Pressure 727.1 mm/Hg Sodium (136-145) mmol/L Potassium (3.5-5.1) mmol/L Chloride (98-107) mmol/L Carbon Dioxide (21-32) mmol/L Anion Gap (3-11) BUN (7-18) mg/dl Creatinine (0.6-1.2) mg/dl Est Cr Clr Drug Dosing ml/min Est GFR ( Amer) ml/min Est GFR (Non-Af Amer) ml/min BUN/Creatinine Ratio (10-20) Glucose (70-99) mg/dl Lactate 1.2 (0.4-2.0) mmol/L Calcium (8.5-10.1) mg/dl Magnesium (1.8-2.4) mg/dl Total Bilirubin (0.2-1) mg/dl AST (15-37) U/L ALT (12-78) U/L Alkaline Phosphatase (45-117) U/L Troponin I (0-0.045) ng/ml Total Protein (6.4-8.2) gm/dl Albumin (3.4-5.0) gm/dl Globulin (2.5-4.0) gm/dl Albumin/Globulin Ratio (0.9-2) Procalcitonin (0-0.5) ng/ml COVID-19 Eval Order SARS-CoV-2 (PCR) (Negative) Imaging Data Radiologist's Impression: Chest X-Ray 02/21/21 18:35 XR chest 1V portable CLINICAL HISTORY: SEPSIS COMPARISON STUDY: Chest radiograph August 14, 2019. FINDINGS: Lung volumes are normal. Lungs are clear. There is no pneumothorax or pleural effusion. Cardiac size is normal. Mediastinal contours are normal. There is no evidence for pulmonary edema. Mild interstitial thickening is unchanged. IMPRESSION: No acute cardiopulmonary findings. ACT 112: Negative or not required by law. Electronically signed by: Gerry Willis M.D. 02/21/2021 6:58 PM Preliminary Findings Only See Final Report For Complete Findings CTA CHEST: Mild atherosclerotic disease of aorta with no aneurysm or dissection. No pulmonary embolus. Minimal bilateral posterior dependent atelectasis otherwise no acute cardiopulmonary process. Upper abdomen reveals left perinephric stranding with possible minimal hiatal hernia. No pleural effusion or pneumothorax. Nonspecific degenerative disease of the spine. Radiologist: Naty Victor MD Study ready at 21:30 and initial results transmitted at 21:50 ECG Data Interpretation: Sinus rhythm with a rate of 84. QRS 74. DE and QTc intervals are within normal limits. No ST elevation or ST depression. [facility] Narrative 1833: The patient was evaluated in room C9. A complete history and physical exam was performed Cardiac monitoring: An order was placed for continuous cardiac monitoring. The monitor shows a rate of 90 with sinus rhythm Patient hypoxic on room air in the mid 80s. Patient placed on supplemental oxygen via nasal cannula which improved her oxygen saturation. 1999: Vital signs stable on supplemental oxygen. Patient no longer wheezing after DuoNeb and Solu-Medrol. Covid negative. Will obtain CT of the chest. 2229: Vital signs stable on supplemental oxygen via nasal cannula. CTA of the chest is within normal limits, no PE. Patient will be admitted to the [facility] team for COPD exacerbation. Impression & Plan Hypoxia, COPD exacerbation Critical Care Time Critical Care Time: Yes Total Critical Care Time: 56 I have personally spent greater than 56 minutes of critical care time in the direct management of this patient. This includes bedside care, interpretation of diagnostic studies, and testing, discussion with consultants, patient, and family members, and other required patient management activities. This 56 minutes is in excess of all separately billable procedures. Discharge Plan Visit Data Chief Complaint: Illness Stated Complaint: Nausea, Diarrhea, Chills, body aches Discharge Problem: Hypoxia, COPD exacerbation Patient Disposition: Admitted As Inpatient Discharge Instructions Interventions: ED Discharge Assessment Last Done: 02/22/21 01:06 Forms Stand Alone Forms: My [facility] [place] Prescriptions Prescriptions: No Action atorvastatin 40 mg tablet 80 mg PO QAM 90 Days Qty: 180 RF: 3 clopidogrel 75 mg tablet 75 mg PO DAILY Qty: 90 RF: 3 pantoprazole [Protonix] 40 mg tablet,delayed release (DR/EC) 40 mg PO QAM RF: 0 tizanidine [Zanaflex] 4 mg tablet 4 mg PO Q8H PRN (Reason: muscle spasticity) RF: 0 metoprolol tartrate 25 mg tablet 12.5 mg PO BID 90 Days Qty: 90 RF: 3 lisinopril [Zestril] 5 mg tablet 5 mg PO BID 90 Days Qty: 180 RF: 3 metformin 500 mg tablet extended release 24 hr 1,000 mg PO QAM RF: 0 paroxetine HCl [Paxil] 40 mg tablet 40 mg PO QAM RF: 0 nitroglycerin [Nitrostat] 0.4 mg Tablet, Sublingual 0.4 mg sublingual PRN PRN (Reason: chest pain) Qty: 30 RF: 0 levothyroxine 112 mcg tablet 112 mcg PO .COMPLEX RF: 0 acetaminophen [Tylenol Extra Strength] 500 mg Tablet 1,000 mg PO QID PRN (Reason: Headache) RF: 0 albuterol sulfate [Ventolin HFA] 90 mcg/actuation Hfa Aerosol Inhaler 2 puff INHALATION QID PRN (Reason: Shortness Of Breath) RF: 0 aspirin [Aspir-Low] 81 mg Tablet,Delayed Release (Dr/Ec) 81 mg PO DAILY RF: 0 Referrals Referrals: Charlie Sanchez MD [Primary Care Provider] -
[2021-02-22] MEDS ORDERED: ONDANSETRON INJ 2 MG/ML 2 ML VIAL IV PRN (01:45)
[2021-02-22] MEDS ORDERED: XOPENEX/ATROVENT 1.25mg/0.5MG NEB COMBO NEB SCH (01:45)
[2021-02-22] MEDS ORDERED: NITROGLYCERIN SL 0.4 MG/TAB TAB SL PRN ×2 (01:45)
[2021-02-22] MEDS ORDERED: SODIUM CHLORIDE 0.9% 1000ML 1,000 ML IV SCH (01:45)
[2021-02-22] MEDS ORDERED: tiZANidine HCL 4 MG TABLET PO PRN (01:45)
[2021-02-22] MEDS ORDERED: ACETAMINOPHEN 325 MG TAB PO PRN (01:45)
[2021-02-22] MEDS ORDERED: POLYETHYLENE (MIRALAX) 17 GM PACK PO PRN (01:45)
[2021-02-22] MEDS ORDERED: ALBUTEROL HFA 8 GM INHALER INH PRN (01:45)
[2021-02-22] MEDS ORDERED: LEVALBUTEROL HCL 1.25 MG/3 ML NEB NEB PRN (01:45)
[2021-02-22] MEDS: LEVALBUTEROL 1.25MG/0.5ML NEB INH SCH ×4 (02:07→19:08)
[2021-02-22] MEDS: IPRATROPIUM BROMIDE NEB SOLN 0.02% 2.5 ML VIAL INH SCH ×4 (02:07→19:08)
--- NOTE | 2021-02-22 02:45 | History and Physical Report ---
DATE OF ADMISSION: 02/22/21 CHIEF COMPLAINT: Ongoing illness, COPD. HISTORY OF PRESENT ILLNESS: This is a 65-year-old female with past medical history significant for type 2 diabetes, hypothyroidism, hyperlipidemia, diabetic neuropathy, history of obesity, psoriasis, panic disorder, tobacco use disorder, depression, acute ST elevated TN involving left circumflex artery and drug-eluting stent in July of 2019, presents with ongoing illness with a headache, nausea and vomiting and diarrhea going on for the last few days and she came here. When she came in, she was hypoxic, she was only 83% saturation and with the oxygen supplementation her saturation improved. For COPD exacerbation, was started on steroids and breathing treatments. Currently, feeling better. She says her headache is better. Her nausea is better. She is not eating much because of ongoing illness. She had a COVID vaccine, TapShield in October 2020. Denies any chest pain. Has cough, no fevers, no blurred visions, no earache, no runny nose, no sore throat, no difficulty swallowing. Sleeping okay. Normal bladder movements. No swelling in the legs, no rash. ALLERGIES: CEPHALEXIN, ERYTHROMYCIN BASE, SULFA ANTIBIOTICS. PAST MEDICAL HISTORY: As mentioned above. PAST SURGICAL HISTORY: Cardiac stent placement, colonoscopy, dental surgery, EGDs. MEDICATIONS: The patient is on Tylenol Extra Strength 1000 mg p.o. q.i.d. p.r.n., albuterol 2 puffs inhalation q.i.d. p.r.n., atorvastatin 80 mg p.o. daily, Plavix 75 mg p.o. daily, levothyroxine 112 mcg p.o. daily, lisinopril 5 mg p.o. b.i.d., metformin 1000 mg p.o. a.m., metoprolol tartrate 12.5 mg p.o. b.i.d., nitroglycerin 0.4 sublingual p.r.n., Protonix 40 mg p.o. daily, paroxetine 40 mg p.o. a.m., tizanidine 4 mg p.o. q. 8 hours p.r.n. FAMILY HISTORY: Significant for mother has arthritis, skin cancer, diabetes, father has heart disorder, lung disorder. SOCIAL HISTORY: Single, smokes. Currently, half pack a day for 42 years as per the Epic but patient says she only smoked quarter pack a day now. No alcohol use. No drug use. REVIEW OF SYSTEMS: As per HPI. Rest of review of symptoms negative. PHYSICAL EXAMINATION: GENERAL: The patient is of moderate build, not in acute distress. VITAL SIGNS: Temperature 36.4, pulse 94, respiratory rate 16, blood pressure 118/80, oxygen currently 95% on 2 liters, when she came 83% on room air. HEENT: Extraocular muscles intact. Atraumatic. NECK: No JVD. No neck masses. CARDIOVASCULAR: S1 and S2 heard. Regular rate and rhythm. No murmur, no gallop. RESPIRATORY SYSTEM: Normal AP diameter. Diminished bilateral breath sounds. No accessory muscle use. No crackles. No wheezing. ABDOMEN: Soft, bowel sounds present, nontender, no distention. CENTRAL NERVOUS SYSTEM: Cranial nerves II-XII grossly intact, nonfocal. EXTREMITIES: No edema, no erythema. LABORATORY DATA: WBC 12.5, hemoglobin 14.8, hematocrit 43.1, platelets 192. PT 10.2, INR 1, APTT 27.1. Venous blood gas pH of 7.39, pCO2 of 50, pO2 of 77, bicarbonate 30. Sodium 135, potassium 3.5, chloride 98, bicarbonate 28, BUN 11, creatinine 1.29, serum glucose 110. Lactate 1.2, calcium 8.9, magnesium 2.1, total bilirubin is 1.4, AST 22, ALT 22, alkaline phosphatase 82. Troponin I less than 0.015. Procalcitonin 0.52. SARS-CoV-2 PCR negative. IMAGING DATA: CTA of the chest, no PE, mild bilateral posterior dependent atelectasis, otherwise no acute cardiopulmonary process. Upper abdomen reveals left, no pleural effusion or pneumothorax. Chest x-ray, no acute cardiopulmonary findings. EKG: Normal sinus rhythm, rate of 84, no acute ST changes seen. ASSESSMENT AND PLAN: A 65-year-old female presents with ongoing illness and found to be in hypoxic, positive for COPD exacerbation. 1. Chronic obstructive pulmonary disease exacerbation. The patient smokes cigarettes; she was hypoxic on room air, received steroids and nebs in the ER, currently saturating fine on 2 liters. We will continue with IV Solu-Medrol 40 mg t.i.d. nebs around the clock and p.r.n. and p.o. doxycycline. Monitor in the [employer] tele. 2. Tobacco abuse. Needs counseling. 3. Headache, nausea, vomiting, diarrhea getting better. If any worsening, we will get a stool sample. 4. Diabetes: Hold metformin. Place on insulin sliding scale. Follow the blood sugars. Follow HbA1c level. 5. Hypertension, controlled with metoprolol tartrate and lisinopril. Monitor the blood pressure. 6. History of CAD, status post stent. Continue statin, Plavix, aspirin and beta cristopher. 7. Gastroesophageal reflux disease: Continue Protonix. 8. Depression: Continue paroxetine. 9. Hypothyroidism, continue Synthroid. 10. Deep venous thrombosis prophylaxis with Lovenox. DISPOSITION: Monitor in the [employer] tele. PT/OT prior to discharge. Social service to help with discharge planning. Job ID: [id number] VANNA
[2021-02-22] MEDS: ENOXAPARIN INJ 40 MG/0.4 ML SYR SQ SCH ×2 (04:03→19:48)
[2021-02-22] MEDS: DOXYCYCLINE HYCLATE 100 MG CAP PO SCH ×3 (04:03→19:48)
[2021-02-22 05:37] LABS: Hematocrit (blood only) 39.9 % (37-47); Hemoglobin 13.4 g/dL (12.0-16.0); Immature Granulocytes # (auto) 0.02 K/uL (0.00-0.02); Immature Granulocytes % (auto) 0.2 %; Lymphocytes # (auto) 0.58 K/uL (1.2-3.4); Lymphocytes % (auto) 6.3 %; Mean Corpuscular Hemoglobin 30.6 pg (25-34); Mean Corpuscular Hgb Conc 33.6 g/dL (32-36); Mean Corpuscular Volume 91.1 fL (80-100); Mean Platelet Volume 9.8 fL (7.4-10.4); Monocytes # (auto) 0.08 K/uL (0.11-0.59); Monocytes % (auto) 0.9 %; Neutrophils # (auto) 8.54 K/uL (1.4-6.5); Neutrophils % (auto) 92.6 %; Platelet Count 188 K/uL (130-400); RDW Coefficient of Variation 13.3 % (11.5-14.5); RDW Standard Deviation 44.4 fL (36.4-46.3); Red Blood Count 4.38 M/uL (4.2-5.4); White Blood Count 9.22 K/uL (4.8-10.8)
[2021-02-22] MEDS: LEVOTHYROXINE SODIUM 112 MCG TABLET PO SCH (05:39)
[2021-02-22 06:41] LABS: BUN Creatinine Ratio 10.2 (10-20); Blood Urea Nitrogen 11 mg/dl (7-18); Calcium 8.3 mg/dl (8.5-10.1); Carbon Dioxide 26 mmol/L (21-32); Chloride 105 mmol/L (98-107); Creatinine Clr Calc Pharmacy 54.6 ml/min; Est GFR (African American) 66.1 ml/min; Glucose 222 mg/dl (70-99); Magnesium 2.2 mg/dl (1.8-2.4); Potassium 4.3 mmol/L (3.5-5.1); Sodium 135 mmol/L (136-145); Troponin I < 0.015 ng/ml (0-0.045)
[2021-02-22 06:52] LABS: Appearance Urine Clear (Clear); Bacteria Urine Automated Negative (Negative); Bilirubin Urine Negative (Negative); Blood Urine Trace (Negative); Color Urine Yellow; Glucose Urine UA Negative (Negative); Ketones Urine Trace (Negative); Leukocyte Esterase Urine Negative (Negative); Nitrite Urine Negative (Negative); Protein Urine Negative (Negative); RBC Urine Automated 0-4 /hpf (0-4); Specific Gravity Urine 1.014 (1.000-1.030); Urobilinogen Urine Negative (Negative)
--- NOTE | 2021-02-22 07:20 | CT Scan Report ---
CT ANGIOGRAM OF THE CHEST CLINICAL HISTORY: Dyspnea. COMPARISON STUDY: Chest x-ray dated 02/21/2021. TECHNIQUE: Following the IV administration of 120 cc of Optiray 320, CT angiogram of the chest was pe rformed from the upper abdomen to the thoracic inlet utilizing the pulmonary embolus protocol. Images are reviewed in the axial, sagittal, and coronal planes. 3-D MIPS images are created and assessed. I V contrast was administered without complication. A dose lowering technique was utilized adhering to the principles of ALARA. CT DOSE: 404.65 mGy.cm FINDINGS: Thyroid: Atrophic. Thoracic aorta: There is mild atherosclerotic calcification of the thoracic aorta, which is normal in caliber and demonstrates 4-vessel variant arch anatomy. No dissection is seen. Pulmonary vasculature: The pulmonary trunk is normal in caliber. There are no filling defects identif ied in main, lobar, or segmental pulmonary branches to suggest pulmonary embolus. Heart: The heart is normal in size and without pericardial effusion. Lungs and pleural spaces: A 7 mm pulmonary nodule is seen in the right lower lobe on image #71. The l ungs and pleural spaces are otherwise clear noting dependent atelectasis. The trachea and central air ways are patent. Mediastinum: There is no mediastinal lymphadenopathy. Mariya: Clear. Axillae: There is no axillary lymphadenopathy. Upper abdomen: There is a small hiatal hernia. Partially visualized upper abdominal viscera is within normal limits. Skeletal structures: No lytic or blastic bony lesions are seen. IMPRESSION: 1. There is no evidence of pulmonary embolus in the main, lobar, or segmental pulmonary arteries. 2. There is no airspace consolidation or pleural effusion. 3. A 7 mm pulmonary nodule is seen in the right lower lobe. This is pathologically indeterminant and can be followed as per the Fleischner criteria. See below. Please refer to below summary of Fleischner criteria recommendations for follow-up of incidental CT n odules (Angelique Rush, Guidelines for management of small pulmonary nodules detected on CT scans: A sta tement from the Fleischner Society, Radiology 237: [phone].) SOLID NODULES Solitary nodule size: <6 mm * low risk patients: no follow-up needed * high risk patients: optional CT at 12 months Solitary nodule size: 6-8 mm * low risk patients: follow-up at 6-12 months, then consider further follow-up at 18-24 months * high risk patients: initial follow-up CT at 6-12 months and then at 18-24 months if no change Solitary nodule size: >8 mm * either low or high risk patients - consider follow-up CT at 3 months, and/or CT-PET, and/or biopsy Multiple nodules size: <6 mm * low risk patients: no routine follow-up * high risk patients: optional CT at 12 months Multiple nodules size: 6-8 mm * low risk patients: follow-up at 3-6 months, then consider further follow-up at 18-24 months * high risk patients: follow-up at 3-6 months, then at 18-24 months if no change Multiple nodules size: >8 mm * low risk patients: follow-up at 3-6 months, then consider further follow-up at 18-24 months * high risk patients: follow-up at 3-6 months, then at 18-24 months if no change Note: newly detected indeterminate nodule in persons 35 years of age or older. * low risk patients: minimal or absent history of smoking and/or other known risk factors * high risk patients: history of smoking or of other known risk factors (e.g. first degree relative with lung cancer, or exposure to asbestos, radon, uranium) * if a nodule up to 8 mm is partly solid or is ground glass further follow-up is required after 24 m onths to exclude possible slow growing adenocarcinoma ([facility]) SUBSOLID NODULES Solitary pure ground-glass nodule * nodule size <6 mm - no CT follow-up required * nodule size >=6 mm - follow-up CT at 6-12 months, then every 2 years until 5 years Solitary part-solid nodule * nodule size <6 mm - no CT follow-up required * nodule size >=6 mm - follow-up CT at 3-6 months. If unchanged, and solid component remains <6 mm, then annual follow-up for 5 years Multiple subsolid nodules * nodule size <6 mm - follow-up CT at 3-6 months, consider further follow-up at 2 and 4 years if sta ble * nodule size >=6 mm - follow-up CT at 3-6 months, subsequent management based on the most suspiciou s nodule(s) ACT 112: Positive. There are findings on this exam that require communication between the performing entity and the patient following Patient Test Result Information Act ([place] Act 112) guidelines. Electronically signed by: Bashir Pyle M.D. 02/22/2021 7:18 AM
[2021-02-22] MEDS: METOPROLOL TARTRATE 25 MG TAB PO SCH (07:31)
[2021-02-22] MEDS ORDERED: SODIUM CHLORIDE 0.9% 1000ML 1,000 ML IV ONE (07:45)
[2021-02-22] MEDS: INSULIN ASPART 100 UNITS/ML 3 ML PEN SC SCH ×4 (08:15→20:47)
[2021-02-22 08:16] LABS: Estimated Average Glucose 137 mg/dl; Hemoglobin A1C 6.4 % (4.5-5.6)
[2021-02-22] MEDS: CLOPIDOGREL BISULFATE 75 MG TAB PO SCH (08:17)
[2021-02-22] MEDS: ASPIRIN 81 MG ECTAB PO SCH (08:17)
[2021-02-22] MEDS: PARoxetine HCL 20 MG TAB PO SCH (08:17)
[2021-02-22] MEDS: PANTOprazole 40 MG TAB PO SCH (08:18)
[2021-02-22] MEDS: ATORVASTATIN 40 MG TAB PO SCH (08:18)
[2021-02-22] MEDS: methylPREDNISolone 40 MG in SYRINGE 0 ML IV SCH ×2 (08:18→15:14)
[2021-02-22] MEDS ORDERED: lisinopril 5 MG TAB PO SCH (09:00)
--- NOTE | 2021-02-22 10:05 | Electrocardiogram Report ---
Test Reason : Blood Pressure : / mmHG Vent. Rate : 084 BPM Atrial Rate : 084 BPM P-R Int : 150 ms QRS Dur : 074 ms QT Int : 366 ms P-R-T Axes : 057 080 061 degrees QTc Int : 432 ms Normal sinus rhythm Nondiagnostic inferior Q waves Borderline ECG When compared with ECG of 31-AUG-2019 16:49, T wave inversion no longer evident in Inferior leads T wave inversion no longer evident in Lateral leads Confirmed by Sukhdeep Bauer ([id number]) on 02/22/2021 10:05:24 AM Referred By: REFERRED SELF Confirmed By:Sukhdeep Bauer
--- NOTE | 2021-02-22 12:03 | Communication Note ---
Date of Service: February 22, 2021 Patient seen and examined this morning. History and physical exam as detailed by Dr. Bueno this morning. Patient currently reports that headache, nausea and abdominal pain has resolved. Has not had any diarrhea since, up to the floor. Reports chronic dry cough. No shortness of breath at this time. Physical exam notable for elderly woman, with poor dentition with some missing teeth, on nasal oxygen, with diminished breath sounds bilaterally. Blood work notable for WBC normal at 9000 [improved from 12.5 on presentation], blood glucose of 222, hemoglobin A1c of 6.4. Blood culture growing GNR in 1 bottle. COPD exacerbation. Possible gastroenteritis. Continue inhalers, oxygen supplementation. Patient smokes 3 to 4 cigarettes daily. Reported she was smoking up to 2 packs/day in the past [has been smoking for over 30 years] Provided patient counseling regarding smoking cessation. Continue doxycycline and steroid. Blood culture growing GNR. We will repeat blood cultures. In view of improving clinical symptoms and findings, we hold off escalating antibiotics for now and follow-up repeat tests Agree with other plans as detailed by Dr. Bueno in H&P this morning
[2021-02-22] MEDS ORDERED: COUGH DROP (SUGAR FREE) LOZ 24 LOZ/1 BOX BUCCAL STA (19:33)
[2021-02-23] MEDS: methylPREDNISolone 40 MG in SYRINGE 0 ML IV SCH (00:19)
[2021-02-23] MEDS: LEVALBUTEROL 1.25MG/0.5ML NEB INH SCH ×2 (01:14→07:37)
[2021-02-23] MEDS: IPRATROPIUM BROMIDE NEB SOLN 0.02% 2.5 ML VIAL INH SCH ×2 (01:14→07:36)
[2021-02-23] MEDS: LEVOTHYROXINE SODIUM 112 MCG TABLET PO SCH (05:32)
[2021-02-23 07:36] LABS: Hematocrit (blood only) 37.3 % (37-47); Hemoglobin 12.4 g/dL (12.0-16.0); Mean Corpuscular Hemoglobin 30.8 pg (25-34); Mean Corpuscular Hgb Conc 33.2 g/dL (32-36); Mean Corpuscular Volume 92.6 fL (80-100); Mean Platelet Volume 10.2 fL (7.4-10.4); Platelet Count 258 K/uL (130-400); RDW Coefficient of Variation 13.4 % (11.5-14.5); RDW Standard Deviation 45.6 fL (36.4-46.3); Red Blood Count 4.03 M/uL (4.2-5.4); White Blood Count 16.12 K/uL (4.8-10.8)
[2021-02-23] MEDS: PANTOprazole 40 MG TAB PO SCH (07:54)
[2021-02-23] MEDS: DOXYCYCLINE HYCLATE 100 MG CAP PO SCH ×2 (07:54→20:21)
[2021-02-23] MEDS: ATORVASTATIN 40 MG TAB PO SCH (07:55)
[2021-02-23] MEDS: CLOPIDOGREL BISULFATE 75 MG TAB PO SCH (07:55)
[2021-02-23] MEDS: ASPIRIN 81 MG ECTAB PO SCH (07:55)
--- NOTE | 2021-02-23 08:07 | Electrocardiogram Report ---
Test Reason : Blood Pressure : / mmHG Vent. Rate : 084 BPM Atrial Rate : 084 BPM P-R Int : 160 ms QRS Dur : 086 ms QT Int : 412 ms P-R-T Axes : 063 072 027 degrees QTc Int : 486 ms Normal sinus rhythm Nondiagnostic inferior Q waves Nonspecific T wave abnormality Anterior leads Prolonged QT Abnormal ECG When compared with ECG of 21-FEB-2021 19:02, Nonspecific T wave abnormality now present QT has lengthened Confirmed by Sukhdeep Bauer ([id number]) on 02/23/2021 8:07:33 AM Referred By: REFERRED SELF Confirmed By:Sukhdeep Bauer
[2021-02-23 08:09] LABS: BUN Creatinine Ratio 16.3 (10-20); Calcium 8.6 mg/dl (8.5-10.1); Creatinine Clr Calc Pharmacy 60.7 ml/min; Est GFR (African American) 74.7 ml/min; Est GFR (Non-African American) 64.5 ml/min; Potassium 4.1 mmol/L (3.5-5.1)
[2021-02-23] MEDS ORDERED: IPRATROPIUM BROMIDE NEB SOLN 0.02% 2.5 ML VIAL INH PRN (08:14)
[2021-02-23] MEDS ORDERED: LEVALBUTEROL 1.25MG/0.5ML NEB INH PRN (08:14)
[2021-02-23] MEDS: INSULIN ASPART 100 UNITS/ML 3 ML PEN SC SCH ×4 (08:25→20:22)
[2021-02-23] MEDS: predniSONE 20 MG TAB PO SCH (08:26)
[2021-02-23] MEDS: PARoxetine HCL 20 MG TAB PO SCH (08:51)
--- NOTE | 2021-02-23 09:55 | Hospitalist Progress Note ---
Date of Service February 23, 2021 Assessment & Plan (1) Nausea & vomiting: (2) Diarrhea: Plan: Patient presented with GI symptoms [nausea, vomiting, diarrhea] that quickly resolved. Likely acute gastroenteritis Also has gram-negative donna bacteremia as blood culture on admission grew GNR in 1 bottle and repeat yesterday growing GNR in 1 bottle as well Possible from acute gastroenteritis Patient reports facial swelling/angioedema with cephalexin and sulfa antibio tics. Review of previous antibiotics in the system does not show that patient had received penicillins in the past. Possible sepsis Has leukocytosis today which could be due to possible sepsis vs steroid. Started ciprofloxacin and flagyl. Will hold home prn tizanidine for now. Follow-up blood cultures for speciation/sensitivities BP has been running low to low normal since admission Required fluid bolus yesterday All antihypertensives held. Monitor (3) Hypoxia: (4) COPD exacerbation: Plan: Was hypoxic on admission and was noted to have COPD exacerbation Has been weaned off oxygen. Will need 2 step on discharge Currently on doxycycline and prednisone Will need pulm follow up Counselled patient extensively on need to quit smoking (5) S/P drug eluting coronary stent placement: (6) Coronary artery disease: Plan: Continue aspirin and statin (7) Hypothyroidism: Plan: Continue levothyroxine (8) Tobacco use disorder: Plan: Patient smokes 3 to 4 cigarettes daily. Reported she was smoking up to 2 packs/day in the past [has been smoking for over 30 years] Provided patient counseling regarding smoking cessation. (9) Depression: Plan: Stable Continue home paroxetin (10) Diabetes: Plan: A1c is 6.4 Holding metformin Carb controlled diet Insulin sliding scale (11) DVT prophylaxis: Plan: Lovenox sq Admission and Anticipated Discharge Date Admission Date: February 22, 2021 Subjective 65-year-old woman with history of DM type II, hypothyroidism, hyperlipidemia, diabetic neuropathy, obesity, psoriasis, panic disorder, tobacco use, ST elevated PA involving the circumflex with drug-eluting stenting July 2019 who presented with headache, nausea, vomiting and diarrhea and was noted to be hypoxic in the ER. Patient seen and examined today. Reports her symptoms are resolved. Denies any abdominal pain. Reports some mild tremors in upper extremity which she said was chronic intermittent. Denied any alcohol use Denied any fevers, chills. Denies any nausea, vomiting or diarrhea today. No abdominal pain or discomfort Review of Systems Review of Systems: Other review of systems negative except as above Physical Exam Constitutional: + well hydrated and + obese; no acute distress Eyes: PERRL, conjunctivae normal, anicteric sclerae ENMT: Poor dentition with some missing teeth Respiratory: Currently on room air. No crackles or wheeze. Diminished breath sounds Cardiovascular: Rate/Rhythm: regular rate and regular rhythm S1-S2 Gastrointestinal (Abdomen): normal bowel sounds, soft, nontender, no hepatosplenomegaly Musculoskeletal: no cyanosis or clubbing, extremities motor strength 5/5 Neurologic: PERRL, EOMI, accommodation nl, no face palsy, no dysarthria Psychiatric: A+Ox3, euthymic affect Results & Data Results & Data ([facility]) Vital Signs (Past 12 Hours) Vital Signs Temp Pulse Pulse Resp BP BP Pulse Ox 02/23/21 07:56 36.4 C L 70 18 115/69 98 02/23/21 07:37 92 H 17 96 02/23/21 02:57 36.5 C 104 H 20 129/63 93 02/23/21 01:14 78 20 97 02/22/21 23:48 94 H 02/22/21 23:12 36.6 C 98 H 20 94/53 L 95 Laboratory Results Abnormal lab results 02/22/21 02/22/21 02/23/21 Range/Units 16:46 20:34 07:07 WBC 16.12 H (4.8-10.8) K/uL RBC 4.03 L (4.2-5.4) M/uL Chloride (98-107) mmol/L Glucose (70-99) mg/dl POC Glucose 262 H 240 H (70-99) mg/dl 02/23/21 02/23/21 02/23/21 Range/Units 07:07 07:30 11:48 WBC (4.8-10.8) K/uL RBC (4.2-5.4) M/uL Chloride 109 H (98-107) mmol/L Glucose 199 H (70-99) mg/dl POC Glucose 211 H 174 H (70-99) mg/dl
[2021-02-23] MEDS: CIPROFLOXACIN / D5W 400 MG/200 ML BAG IV SCH ×2 (13:33→21:00)
[2021-02-23] MEDS: metroNIDAZOLE 500 MG/100 ML BAG IV SCH ×2 (13:34→21:02)
[2021-02-23] MEDS: ENOXAPARIN INJ 40 MG/0.4 ML SYR SQ SCH (20:21)
[2021-02-24] MEDS: LEVOTHYROXINE SODIUM 112 MCG TABLET PO SCH (05:09)
[2021-02-24] MEDS: metroNIDAZOLE 500 MG/100 ML BAG IV SCH ×3 (05:10→22:36)
[2021-02-24 06:48] LABS: Hemoglobin 13.4 g/dL (12.0-16.0); Mean Corpuscular Hemoglobin 30.3 pg (25-34); Mean Corpuscular Hgb Conc 32.7 g/dL (32-36); Mean Corpuscular Volume 92.8 fL (80-100); Mean Platelet Volume 10.1 fL (7.4-10.4); Platelet Count 308 K/uL (130-400); RDW Coefficient of Variation 13.5 % (11.5-14.5); RDW Standard Deviation 46.2 fL (36.4-46.3); Red Blood Count 4.42 M/uL (4.2-5.4); White Blood Count 14.88 K/uL (4.8-10.8)
[2021-02-24 07:20] LABS: BUN Creatinine Ratio 16.3 (10-20); Calcium 8.5 mg/dl (8.5-10.1); Creatinine Clr Calc Pharmacy 48.2 ml/min; Est GFR (African American) 56.6 ml/min; Est GFR (Non-African American) 48.9 ml/min; Magnesium 2.1 mg/dl (1.8-2.4); Phosphorus 1.8 mg/dl (2.5-4.9); Potassium 3.5 mmol/L (3.5-5.1)
[2021-02-24] MEDS: PARoxetine HCL 20 MG TAB PO SCH (08:09)
[2021-02-24] MEDS: ASPIRIN 81 MG ECTAB PO SCH (08:09)
[2021-02-24] MEDS: CIPROFLOXACIN / D5W 400 MG/200 ML BAG IV SCH ×2 (08:09→19:26)
[2021-02-24] MEDS: DOXYCYCLINE HYCLATE 100 MG CAP PO SCH ×2 (08:09→19:24)
[2021-02-24] MEDS: CLOPIDOGREL BISULFATE 75 MG TAB PO SCH (08:09)
[2021-02-24] MEDS: PANTOprazole 40 MG TAB PO SCH (08:09)
[2021-02-24] MEDS: predniSONE 20 MG TAB PO SCH (08:09)
[2021-02-24] MEDS: INSULIN ASPART 100 UNITS/ML 3 ML PEN SC SCH ×4 (08:09→20:35)
[2021-02-24] MEDS: ATORVASTATIN 40 MG TAB PO SCH (08:09)
[2021-02-24] MEDS ORDERED: POTASSIUM PHOS 3 MMOL/1 ML INFUSION IV ONE (08:55)
[2021-02-24] MEDS ORDERED: POTASSIUM PHOSPHATE 15 MMOL in SODIUM CHLORIDE 0.9% 250 ML IV ONE (09:45)
[2021-02-24] MEDS: METOPROLOL TARTRATE 25 MG TAB PO SCH ×2 (10:56→19:25)
[2021-02-24] MEDS ORDERED: COUGH DROP (SUGAR FREE) LOZ 24 LOZ/1 BOX BUCCAL PRN (12:22)
[2021-02-24] MEDS ORDERED: COUGH DROP (SUGAR FREE) LOZ 24 LOZ/1 BOX BUCCAL ONE (12:24)
--- NOTE | 2021-02-24 16:23 | Hospitalist Progress Note ---
Date of Service February 24, 2021 Assessment & Plan (1) Nausea & vomiting: (2) Diarrhea: Plan: Patient is a 65 yr female who presented with GI symptoms-nausea, vomiting, diarrhea. Nausea, Vomiting, Diarrhea Likely acute gastroenteritis E.Coli Bacteremia-POA Possible Sepsis Blood Cx: E.Coli Repeat Blood Cx 02/23/21: Negative to date Persistent leukocytosis likely secondary to steroids Continue ciprofloxacin, Flagyl Hold tizanidine for now. Received IV fluids Hypotension resolved (3) Hypoxia: (4) COPD exacerbation: Plan: Acute COPD Exacerbation Ongoing Tobacco use Was hypoxic on admission Weaned off of oxygen Will need 2 step prior to discharge on doxycycline and prednisone Advised pulm follow up as outpatient Advised to quit smoking Hypotension BP improved Continue to hold lisinopril for now (5) S/P drug eluting coronary stent placement: (6) Coronary artery disease: Plan: Continue aspirin and statin (7) Hypothyroidism: Plan: Continue levothyroxine (8) Tobacco use disorder: Plan: Encourage smoking cessation. (9) Depression: Plan: Stable Continue paroxetine (10) Diabetes: Plan: A1c is 6.4 Holding metformin Carb controlled diet Continue Insulin sliding scale Monitor BGs (11) DVT prophylaxis: Plan: Lovenox SQ Admission and Anticipated Discharge Date Admission Date: February 22, 2021 Subjective Patient is seen and examined at bedside Cough much improved Denies dyspnea, dizziness, abdominal pain Nausea, diarrhea resolved Offers no other complaints Saturating low 90s on room air Review of Systems Review of Systems: All systems reviewed & are unremarkable except as noted in Subjective Physical Exam Physical Exam: Physical Exam: Vitals signs as noted above General Appearance:Moderately built and nourished, no apparent distress Head: normocephalic, Atraumatic Eyes: normal inspection, EOMI Neck: supple, Trachea midline Respiratory/Chest: Decreased breath sounds, scattered wheezes, No accessory muscle use Cardiovascular: S1, S2, No murmur Abdomen/GI:Soft, Non tender, Bowel sounds present Extremities/Musculoskeletal:normal inspection, no edema Neurologic/Psych:AAOX3, grossly no focal neurological deficits Skin: normal color, warm Results & Data Results & Data ([facility]) Vital Signs (Past 12 Hours) Vital Signs Temp Pulse Pulse Resp BP Pulse Ox 02/24/21 15:46 60 02/24/21 11:20 37.0 C 72 18 129/81 90 02/24/21 09:38 74 02/24/21 07:36 36.6 C 85 18 124/75 90 Laboratory Results Short CBC 02/24/21 Range/Units 06:09 WBC 14.88 H (4.8-10.8) K/uL Hgb 13.4 (12.0-16.0) g/dL Hct 41.0 (37-47) % Plt Count 308 (130-400) K/uL BMP 02/24/21 06:09 Sodium 142 Potassium 3.5 Chloride 108 H Carbon Dioxide 30 BUN 19 H Creatinine 1.17 Glucose 92 Calcium 8.5
[2021-02-24] MEDS: ENOXAPARIN INJ 40 MG/0.4 ML SYR SQ SCH (19:24)
[2021-02-25] MEDS: LEVOTHYROXINE SODIUM 112 MCG TABLET PO SCH ×2 (04:55→04:58)
[2021-02-25] MEDS: metroNIDAZOLE 500 MG/100 ML BAG IV SCH ×3 (05:12→22:26)
[2021-02-25 06:48] LABS: Hematocrit (blood only) 36.9 % (37-47); Hemoglobin 12.4 g/dL (12.0-16.0); Mean Corpuscular Hemoglobin 30.4 pg (25-34); Mean Corpuscular Hgb Conc 33.6 g/dL (32-36); Mean Corpuscular Volume 90.4 fL (80-100); Mean Platelet Volume 9.9 fL (7.4-10.4); Platelet Count 265 K/uL (130-400); RDW Coefficient of Variation 13.5 % (11.5-14.5); Red Blood Count 4.08 M/uL (4.2-5.4); White Blood Count 11.18 K/uL (4.8-10.8)
[2021-02-25 07:26] LABS: BUN Creatinine Ratio 18.9 (10-20); Calcium 7.9 mg/dl (8.5-10.1); Creatinine Clr Calc Pharmacy 54.6 ml/min; Est GFR (African American) 65.3 ml/min; Est GFR (Non-African American) 56.3 ml/min; Potassium 3.7 mmol/L (3.5-5.1)
[2021-02-25 07:33] LABS: Phosphorus 2.8 mg/dl (2.5-4.9)
[2021-02-25] MEDS: INSULIN ASPART 100 UNITS/ML 3 ML PEN SC SCH ×4 (09:06→21:07)
[2021-02-25] MEDS: ASPIRIN 81 MG ECTAB PO SCH (09:08)
[2021-02-25] MEDS: DOXYCYCLINE HYCLATE 100 MG CAP PO SCH ×2 (09:09→20:09)
[2021-02-25] MEDS: CLOPIDOGREL BISULFATE 75 MG TAB PO SCH (09:09)
[2021-02-25] MEDS: ATORVASTATIN 40 MG TAB PO SCH (09:09)
[2021-02-25] MEDS: PARoxetine HCL 20 MG TAB PO SCH (09:10)
[2021-02-25] MEDS: METOPROLOL TARTRATE 25 MG TAB PO SCH ×2 (09:10→20:09)
[2021-02-25] MEDS: PANTOprazole 40 MG TAB PO SCH (09:10)
[2021-02-25] MEDS: predniSONE 20 MG TAB PO SCH (09:11)
[2021-02-25] MEDS: CIPROFLOXACIN / D5W 400 MG/200 ML BAG IV SCH ×2 (09:40→20:03)
--- NOTE | 2021-02-25 14:00 | Hospitalist Progress Note ---
Date of Service February 25, 2021 Assessment & Plan (1) Nausea & vomiting: (2) Diarrhea: Plan: Patient is a 65 yr female who presented with GI symptoms-nausea, vomiting, diarrhea. Nausea, Vomiting, Diarrhea Likely acute gastroenteritis E.Coli Bacteremia-POA Possible Sepsis Blood Cx: E.Coli Repeat Blood Cx 02/23/21: Negative to date Persistent leukocytosis likely secondary to steroids Continue ciprofloxacin, Flagyl Hold tizanidine for now. Received IV fluids BP improving Plan to complete 2 week course of antibiotics for bacteremia (3) Hypoxia: (4) COPD exacerbation: Plan: Acute COPD Exacerbation Ongoing Tobacco use Was hypoxic on admission Hypoxia resolved on doxycycline and prednisone To complete Doxycycline course tomorrow Advised pulm follow up as outpatient Advised to quit smoking Will get 2 step tomorrow Hypotension H/O Hypertension BP improved Continue Metoprolol with holding parameters Plan to resume lisinopril if BP continues to rise (5) S/P drug eluting coronary stent placement: (6) Coronary artery disease: Plan: Continue aspirin and statin (7) Hypothyroidism: Plan: Continue levothyroxine (8) Tobacco use disorder: Plan: Encourage smoking cessation. (9) Depression: Plan: Stable Continue paroxetine (10) Diabetes: Plan: A1c is 6.4 Holding metformin Carb controlled diet Continue Insulin sliding scale Monitor BGs (11) DVT prophylaxis: Plan: Lovenox SQ Admission and Anticipated Discharge Date Admission Date: February 22, 2021 Subjective Patient is seen and examined at bedside No new complaints Cough continues to improve Denies dyspnea, dizziness, abdominal pain Review of Systems Review of Systems: All systems reviewed & are unremarkable except as noted in Subjective Physical Exam Physical Exam: Physical Exam: Vitals signs as noted above General Appearance:Moderately built and nourished, no apparent distress Head: normocephalic, Atraumatic Eyes: normal inspection, EOMI Neck: supple, Trachea midline Respiratory/Chest: Decreased breath sounds, CTA, No accessory muscle use Cardiovascular: S1, S2, No murmur Abdomen/GI:Soft, Non tender, Bowel sounds present Extremities/Musculoskeletal:normal inspection, no edema Neurologic/Psych:AAOX3, grossly no focal neurological deficits Skin: normal color, warm Results & Data Results & Data ([facility]) Vital Signs (Past 12 Hours) Vital Signs Temp Pulse Pulse Resp BP BP Pulse Ox 02/25/21 11:16 36.5 C 68 16 143/82 H 93 09/09/21 07:35 52 L 02/25/21 06:46 36.5 C 57 L 18 102/56 L 92 02/25/21 03:12 36.8 C 68 18 142/67 H 96 Laboratory Results Short CBC 02/25/21 Range/Units 06:15 WBC 11.18 H (4.8-10.8) K/uL Hgb 12.4 (12.0-16.0) g/dL Hct 36.9 L (37-47) % Plt Count 265 (130-400) K/uL BMP 02/25/21 06:15 Sodium 143 Potassium 3.7 Chloride 111 H Carbon Dioxide 28 BUN 20 H Creatinine 1.04 Glucose 87 Calcium 7.9 L
[2021-02-25] MEDS: ENOXAPARIN INJ 40 MG/0.4 ML SYR SQ SCH (20:11)
[2021-02-26] MEDS: metroNIDAZOLE 500 MG/100 ML BAG IV SCH (05:55)
[2021-02-26 06:46] LABS: Hematocrit (blood only) 38.7 % (37-47); Hemoglobin 12.8 g/dL (12.0-16.0); Mean Corpuscular Hemoglobin 30.3 pg (25-34); Mean Corpuscular Hgb Conc 33.1 g/dL (32-36); Mean Corpuscular Volume 91.7 fL (80-100); Mean Platelet Volume 9.9 fL (7.4-10.4); Platelet Count 311 K/uL (130-400); RDW Coefficient of Variation 13.4 % (11.5-14.5); RDW Standard Deviation 44.6 fL (36.4-46.3); Red Blood Count 4.22 M/uL (4.2-5.4); White Blood Count 12.31 K/uL (4.8-10.8)
[2021-02-26 07:22] LABS: BUN Creatinine Ratio 16.5 (10-20); Creatinine Clr Calc Pharmacy 53.7 ml/min; Est GFR (African American) 63.8 ml/min; Est GFR (Non-African American) 55.1 ml/min; Potassium 3.8 mmol/L (3.5-5.1)
[2021-02-26] MEDS: INSULIN ASPART 100 UNITS/ML 3 ML PEN SC SCH (08:24)
[2021-02-26] MEDS: ASPIRIN 81 MG ECTAB PO SCH (08:26)
[2021-02-26] MEDS: ATORVASTATIN 40 MG TAB PO SCH (08:26)
[2021-02-26] MEDS: METOPROLOL TARTRATE 25 MG TAB PO SCH (08:27)
[2021-02-26] MEDS: DOXYCYCLINE HYCLATE 100 MG CAP PO SCH (08:27)
[2021-02-26] MEDS: CLOPIDOGREL BISULFATE 75 MG TAB PO SCH (08:27)
[2021-02-26] MEDS: PANTOprazole 40 MG TAB PO SCH (08:28)
[2021-02-26] MEDS: PARoxetine HCL 20 MG TAB PO SCH (08:28)
[2021-02-26] MEDS: CIPROFLOXACIN / D5W 400 MG/200 ML BAG IV SCH (08:29)
[2021-02-26] MEDS: predniSONE 20 MG TAB PO SCH (08:29)
--- NOTE | 2021-02-26 09:56 | Hospitalist Progress Note ---
Date of Service February 26, 2021 Assessment & Plan (1) Nausea & vomiting: (2) Diarrhea: Plan: Patient is a 65 yr female who presented with GI symptoms-nausea, vomiting, diarrhea. Nausea, Vomiting, Diarrhea--Resolved Likely acute gastroenteritis E.Coli Bacteremia-POA Possible Sepsis Blood Cx: E.Coli Repeat Blood Cx 02/23/21: Negative to date Persistent leukocytosis likely secondary to steroids Continue ciprofloxacin, Flagyl Hold tizanidine for now.--advised to hold it while on Abx Received IV fluids BP stable Plan to continue Cipro to complete the course for bacteremia (3) Hypoxia: (4) COPD exacerbation: Plan: Acute COPD Exacerbation Ongoing Tobacco use Was hypoxic on admission Hypoxia resolved on prednisone completed Doxycycline course Advised pulm follow up as outpatient Advised to quit smoking Will get 2 step today prior to discharge Hypotension H/O Hypertension BP stable Continue Metoprolol with holding parameters Will decrease lisinopril to 5mg daily (5) S/P drug eluting coronary stent placement: (6) Coronary artery disease: Plan: Continue aspirin and statin (7) Hypothyroidism: Plan: Continue levothyroxine (8) Tobacco use disorder: Plan: Encourage smoking cessation. (9) Depression: Plan: Stable Continue paroxetine (10) Diabetes: Plan: A1c is 6.4 Holding metformin Carb controlled diet Continue Insulin sliding scale Monitor BGs (11) DVT prophylaxis: Plan: Lovenox SQ Admission and Anticipated Discharge Date Admission Date: February 22, 2021 Subjective Patient is seen and examined at bedside States feeling well Eager to get discharged Cough resolved Denies dyspnea, dizziness, abdominal pain Review of Systems Review of Systems: All systems reviewed & are unremarkable except as noted in Subjective Physical Exam Physical Exam: Physical Exam: Vitals signs as noted above General Appearance:Moderately built and nourished, no apparent distress Head: normocephalic, Atraumatic Eyes: normal inspection, EOMI Neck: supple, Trachea midline Respiratory/Chest: Decreased breath sounds, CTA, No accessory muscle use Cardiovascular: S1, S2, No murmur Abdomen/GI:Soft, Non tender, Bowel sounds present Extremities/Musculoskeletal:normal inspection, no edema Neurologic/Psych:AAOX3, grossly no focal neurological deficits Skin: normal color, warm Results & Data Results & Data ([facility]) Vital Signs (Past 12 Hours) Vital Signs Temp Pulse Pulse Resp BP Pulse Ox 02/26/21 07:51 36.5 C 74 16 122/75 98 02/26/21 07:28 55 L 02/26/21 03:19 36.6 C 66 18 134/80 92 02/25/21 23:30 36.7 C 58 L 114/71 97 02/25/21 23:00 59 L Laboratory Results Short CBC 02/26/21 Range/Units 05:43 WBC 12.31 H (4.8-10.8) K/uL Hgb 12.8 (12.0-16.0) g/dL Hct 38.7 (37-47) % Plt Count 311 (130-400) K/uL BMP 02/26/21 05:43 Sodium 143 Potassium 3.8 Chloride 109 H Carbon Dioxide 29 BUN 17 Creatinine 1.06 Glucose 84 Calcium 8.0 L
--- NOTE | 2021-02-26 10:10 | Discharge Summary ---
Date of Service February 26, 2021 Admission HPI Per Admitting Provider CHIEF COMPLAINT: Ongoing illness, COPD. HISTORY OF PRESENT ILLNESS: This is a 65-year-old female with past medical history significant for type 2 diabetes, hypothyroidism, hyperlipidemia, diabetic neuropathy, history of obesity, psoriasis, panic disorder, tobacco use disorder, depression, acute ST elevated MA involving left circumflex artery and drug-eluting stent in July of 2019, presents with ongoing illness with a headache, nausea and vomiting and diarrhea going on for the last few days and she came here. When she came in, she was hypoxic, she was only 83% saturation and with the oxygen supplementation her saturation improved. For COPD exacerbation, was started on steroids and breathing treatments. Currently, feeling better. She says her headache is better. Her nausea is better. She is not eating much because of ongoing illness. She had a COVID vaccine, [employer] in October 2020. Denies any chest pain. Has cough, no fevers, no blurred visions, no earache, no runny nose, no sore throat, no difficulty swallowing. Sleeping okay. Normal bladder movements. No swelling in the legs, no rash. Admission Exam Per Admitting Provider PHYSICAL EXAMINATION: GENERAL: The patient is of moderate build, not in acute distress. VITAL SIGNS: Temperature 36.4, pulse 94, respiratory rate 16, blood pressure 118/80, oxygen currently 95% on 2 liters, when she came 83% on room air. HEENT: Extraocular muscles intact. Atraumatic. NECK: No JVD. No neck masses. CARDIOVASCULAR: S1 and S2 heard. Regular rate and rhythm. No murmur, no gallop. RESPIRATORY SYSTEM: Normal AP diameter. Diminished bilateral breath sounds. No accessory muscle use. No crackles. No wheezing. ABDOMEN: Soft, bowel sounds present, nontender, no distention. CENTRAL NERVOUS SYSTEM: Cranial nerves II-XII grossly intact, nonfocal. EXTREMITIES: No edema, no erythema. Principal Diagnosis Escherichia coli bacteremia Acute COPD exacerbation Gastroenteritis Discharge Data Allergies Allergy/AdvReac Type Severity Reaction Status Date / Time cephalexin Allergy Unknown face Unverified 02/21/21 18:42 swelling erythromycin base Allergy Unknown nausea, Unverified 02/21/21 18:42 vomitting Sulfa (Sulfonamide Allergy Unknown face Unverified 02/21/21 18:42 Antibiotics) swelling Consultations 09/05/21 22:23 ED Decision to Admit Stat Ordered Studies 02/21/21 20:09 CT angio chest PE protocol Urgent Hospital Course (1) Nausea & vomiting: (2) Diarrhea: Patient is a 65 yr female who presented with GI symptoms-nausea, vomiting, diarrhea. Nausea, Vomiting, Diarrhea--Resolved Likely acute gastroenteritis E.Coli Bacteremia-POA Possible Sepsis Blood Cx: E.Coli Repeat Blood Cx 02/23/21: Negative to date Persistent leukocytosis likely secondary to steroids Continue ciprofloxacin, Flagyl Hold tizanidine for now.--advised to hold it while on Abx Received IV fluids BP stable Plan to continue Cipro to complete the course for bacteremia (3) Hypoxia: (4) COPD exacerbation: Acute COPD Exacerbation Ongoing Tobacco use Was hypoxic on admission Hypoxia resolved on prednisone completed Doxycycline course Advised pulm follow up as outpatient Advised to quit smoking 2 step: Did not qualify for oxygen. Hypotension H/O Hypertension BP stable Continue Metoprolol with holding parameters Will decrease lisinopril to 5mg daily (5) S/P drug eluting coronary stent placement: (6) Coronary artery disease: Continue aspirin and statin (7) Hypothyroidism: Continue levothyroxine (8) Tobacco use disorder: Encourage smoking cessation. (9) Depression: Stable Continue paroxetine (10) Diabetes: A1c is 6.4 Holding metformin Carb controlled diet Continue Insulin sliding scale Monitor BGs (11) DVT prophylaxis: Lovenox SQ Total Time Total Time Spent Total Time Spent (In Minutes): 43 minutes Discharge Plan Discharge Items Patient Disposition: Home - Self-Care Reason For Visit: ILLNESS Discharge Diagnosis: Escherichia coli bacteremia Acute COPD exacerbation Gastroenteritis Activity: Per Instructions section Exercise/Sports: Gradually increase as tolerated Non-emergency contact: Primary Care Provider and Bar Helper Call non-emergency contact if: you have any medication questions, your symptoms worsen, your pain is concerning for you and you have a fever Follow-up/Referrals: Charlie Sanchez MD [Primary Care Provider] - (Date & Time 03/02/2021 11:00 AM Provider Charlie Sanchez III, MD Department [facility] ) Peter Padgett MD [Outside Practitioners] - (Date & Time 08/12/2021 8:00 AM Provider Peter Padgett MD Department Pulmonary Medicine, [facility] ) Diet: Carb Consistent or DM2 and Heart Healthy Addtl Attending Provider Instructions: Follow-up with your primary care physician on 03/02/2021 11:00 AM Follow-up with your gun stocker Dr. Padgett on 08/12/2021 8:00 AM Quit smoking tobacco as advised --Complete the antibiotic course ciprofloxacin as prescribed for bacteremia. --Also take prednisone 40 mg once tomorrow and stop for COPD exacerbation. --Your Blood pressure medications were adjusted as you have relatively low blood pressure during your hospitalization. Discussed with your physician for further adjustment of your medications. --DO Not take Tizanidine while on Ciprofloxacin as advised. Your final blood cultures are pending at the time of discharge. Follow-up with your physician for results. Seek immediate medical attention if your symptoms reoccur or worsen Please take all medications as instructed on discharge list below. Please call if you have any questions or problems. You can reach a [facility] hospitalist on duty at [facility] 24 hours a day by calling [phone] Pending Studies at Discharge: Yes Studies:: Final Blood cultures Stand-Alone Forms: [facility], Smoking Cessation Medications and DC Order Prescriptions: New prednisone 20 mg Tablet 40 mg PO QAM Qty: 2 RF: 0 ciprofloxacin HCl 500 mg tablet 500 mg PO BID Qty: 14 RF: 0 Continued atorvastatin 40 mg tablet 80 mg PO QAM 90 Days Qty: 180 RF: 3 clopidogrel 75 mg tablet 75 mg PO DAILY Qty: 90 RF: 3 pantoprazole [Protonix] 40 mg tablet,delayed release (DR/EC) 40 mg PO QAM RF: 0 metoprolol tartrate 25 mg tablet 12.5 mg PO BID 90 Days Qty: 90 RF: 3 metformin 500 mg tablet extended release 24 hr 1,000 mg PO QAM RF: 0 paroxetine HCl [Paxil] 40 mg tablet 40 mg PO QAM RF: 0 nitroglycerin [Nitrostat] 0.4 mg Tablet, Sublingual 0.4 mg sublingual PRN PRN (Reason: chest pain) Qty: 30 RF: 0 levothyroxine 112 mcg tablet 112 mcg PO .COMPLEX RF: 0 acetaminophen [Tylenol Extra Strength] 500 mg Tablet 1,000 mg PO QID PRN (Reason: Headache) RF: 0 albuterol sulfate [Ventolin HFA] 90 mcg/actuation Hfa Aerosol Inhaler 2 puff INHALATION QID PRN (Reason: Shortness Of Breath) RF: 0 aspirin 81 mg Tablet,Delayed Release (Dr/Ec) 81 mg PO DAILY RF: 0 Changed lisinopril [Zestril] 5 mg tablet 5 mg PO DAILY 90 Days Qty: 180 RF: 3 Discontinued tizanidine [Zanaflex] 4 mg tablet 4 mg PO Q8H PRN (Reason: muscle spasticity) RF: 0 Discharge Orders: Discharge Order (Routine); Ordered 02/26/21 Ordered By: Ethan Villanueva/Other Patient Handouts: A1C, Managing Type 2 Diabetes Admission Data Admit Date/Time: 02/22/21 00:03 Attending Provider: Ethan Hurley Admit Provider: Praveen Bueno Primary Care Provider: Charlie Sanchez Other Providers: Praveen Bueno Other Interventions: Discharge Summary Assessment (RN) Last Done: 02/26/21 11:28
== END 2021-02-26 12:49 | disposition home or self-care (01) | DRG 872 ==
LOC: ED 17:24 → SUATTDRO 02-22 00:03 → 2N 02-22 00:03